=== PATIENT | female | born 2000 | race Caucasian/White ===

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

== ENCOUNTER 2023-11-06 11:21 | Outpatient (CLI) | payer OTHER, SELFPAY ==
[2023-11-06 12:05] LABS: Basophils Absolute Auto 0.04 K/mm3 (0.00-0.10); Basophils Percent Auto 0.8 % (0.0-1.0); Eosinophils Absolute Auto 0.09 K/mm3 (0.02-0.50); Eosinophils Percent Auto 1.7 % (1.0-6.0); Hematocrit 41.4 % (35.0-49.0); Hemoglobin 14.3 g/dL (12.0-15.0); Immature Granulocyte Absolute 0.01 K/mm3 (0.00-0.00); Immature Granulocyte Percent A 0.2 % (0.0-0.0); Lymphocytes Absolute Auto 1.79 K/mm3 (1.10-4.50); Lymphocytes Percent Auto 34.4 % (18.0-42.0); Mean Corpuscular HGB Conc 34.5 g/dL (32-36); Mean Corpuscular Hemoglobin 30.5 pg (27.0-31.0); Mean Corpuscular Volume 88.3 fL (78.0-102.0); Mean Platelet Volume 10.6 fl (9.2-11.8); Monocytes Absolute Auto 0.32 K/mm3 (0.10-0.90); Monocytes Percent Auto 6.1 % (2.0-11.0); Neutrophils Absolute Auto 2.96 K/mm3 (1.70-7.20); Neutrophils Percent Auto 56.8 % (50.0-70.0); Platelet Count Result 217 K/mm3 (150-420); Red Blood Count 4.69 M/mm3 (4.20-5.40); Red Cell Distribution Width 12.3 % (11.6-14.4); White Blood Count 5.2 K/mm3 (4.8-10.8)
[2023-11-06 12:08] LABS: Appearance Urine Clear (Clear); Bilirubin Urine Negative (Negative); Blood Urine Negative (Negative); Color Urine Light Yellow (Yellow); Glucose Urine UA Negative (Negative); Ketones Urine Negative (Negative); Leukocyte Esterase Ur Trace (Negative); Nitrate Urine Negative (Negative); Protein Urine Negative (Negative); Specific Grav Ur 1.025 (1.010-1.020)
[2023-11-06 12:23] LABS: Add Urine Microscopic? YES; Bacteria Urine 2+ /hpf; RBC Urine None seen /hpf (0-2); Squamous Epithelial Cell Urine Moderate /hpf (Few); WBC Urine 0-3 /hpf (0-3)
[2023-11-06 12:45] LABS: Alanine Aminotransferase 20 U/L (14-59); Albumin Level 4.3 g/dL (3.4-5.0); Alkaline Phosphatase 73 U/L (46-116); Anion Gap 9 mmol/L (4-12); Aspartate Amino Transferase 15 U/L (15-37); Bilirubin,Total 0.9 mg/dL (0.00-1.00); Blood Urea Nitrogen 9 mg/dL (7-18); Calcium 8.9 mg/dL (8.5-10.1); Carbon Dioxide 28 mmol/L (21-32); Chloride 105 mmol/L (98-108); Estimated Glomerular Filt Rate > 60; Free T4 Free Thyroxine 0.93 ng/dL (0.76-1.46); Glucose 85 mg/dL (70-99); Osmolality Calculated 291 mOsm/kg (285-295); Potassium 4.4 mmol/L (3.5-5.1); Sodium 142 mmol/L (136-145); Thyroid Stimulating Hormone 2.51 uIU/mL (0.36-3.74); Total Protein 7.2 g/dL (6.4-8.2)
[2023-11-06 12:49] LABS: Beta HCG Quantitative < 1.00 mIU/mL (0-6)
[2023-11-06 15:39] LABS: Partial Thromboplastin Time 26.8 Sec (23.9-30.70)
== END 2023-11-06 11:22 | disposition home or self-care (01) ==
LOC: CHSLAB 11:23
PROVIDERS: PCP Internal Medicine; Visit Provider Internal Medicine
DX: K59.00 Constipation, unspecified (principal); K62.5 Hemorrhage of anus and rectum; T14.8XXA Other injury of unspecified body region, initial encounter; Z30.9 Encounter for contraceptive management, unspecified
CPT/HCPCS: 36415; 80053; 81001; 83735; 84439; 84443; 84481; 84702; 85025; 85610; 85730

== ENCOUNTER 2023-11-20 10:30 | Outpatient (CLI) | payer OTHER, SELFPAY ==
--- NOTE | ~2023-11-20 | US_ITS ---
US breast RT limited INDICATION: Right breast pain TECHNIQUE: Dedicated Limited right breast ultrasound COMPARISON: No prior studies for comparison. FINDINGS: The right breast is composed of normal heterogeneous echotexture without focal solid or cys tic mass. IMPRESSION: 1: Normal limited right breast ultrasound. BI-RADS CATEGORY 1 - NEGATIVE Reviewed, dictated and finalized at location B.
== END 2023-11-20 10:31 | disposition home or self-care (01) ==
LOC: CHSIMG 10:32
PROVIDERS: PCP Internal Medicine; Visit Provider Nurse Practitioner Family
DX: N64.4 Mastodynia (principal)
CPT/HCPCS: 76642

== ENCOUNTER 2023-12-16 09:22 | Outpatient (CLI) | payer OTHER, SELFPAY ==
[2023-12-18 14:41] LABS: Reference Lab Test Name THYROID T7 PANEL
== END 2023-12-16 09:23 | disposition home or self-care (01) ==
LOC: CHSLAB 09:28
PROVIDERS: PCP Internal Medicine
DX: K59.00 Constipation, unspecified (principal)
CPT/HCPCS: 36415; 84436; 84479

== ENCOUNTER 2023-12-23 14:46 | Outpatient (CLI) | payer OTHER, SELFPAY ==
[2023-12-25 11:58] LABS: NIL 0.03 IU/mL; Quantiferon TB Plus, 1T NEGATIVE (NEGATIVE)
== END 2023-12-23 14:47 | disposition home or self-care (01) ==
LOC: CHSLAB 14:47
PROVIDERS: PCP Internal Medicine; Visit Provider Internal Medicine
DX: Z02.0 Encounter for examination for admission to educational institution (principal)
CPT/HCPCS: 36415; 86480

== ENCOUNTER 2024-08-03 08:00 | Outpatient (CLI) | payer OTHER, SELFPAY ==
--- NOTE | ~2024-08-03 | US_ITS ---
EXAMINATION: US OB <= 14 weeks fetus DATE: 08/03/2024 9:25 PRIEST INDICATION: Amenorrhea with positive test COMPARISON: 03/10/2024 TECHNIQUE: Real-time transabdominal obstetric ultrasound. FINDINGS: 1 para 0 Estimated date of delivery by last menstrual period is 02/12/2025 The uterus measures 13.3 x 6.8 x 9.6 cm. A gestational sac is identified within the uterus. A pole is identified, with a crown-rump length that measures 6.9 cm, corresponding to an approx imate gestational age of 13 weeks and 1 day. cardiac activity is identified at a rate of 159 bpm. The right ovary measures 4.1 x 2.6 x 3.4 cm. Single, anechoic avascular focus within the right ovary measuring 16 x 16 x 19 mm, likely a simple cy st for which no further follow-up is needed. The left ovary measures 3.0 x 2.5 x 1.8 cm. Estimated date of delivery by ultrasound is 02/07/2025 IMPRESSION: Single intrauterine gestation with an approximate gestational age of 13 weeks and 1 day, with c ardiac activity identified. Reviewed, dictated and finalized at location A. ST IMPRESSION: Single intrauterine gestation with an approximate gestational age of 13 weeks a nd 1 day, with cardiac activity identified.
--- OUTSIDE RECORDS SUMMARY | 2024-08-03 08:13 | XMS_ITS | Clinical Summary ---
Author Organization [facility] [email or web address] Address [address] [place] [address] Care Team Providers Care Grab Hooker Name Role Phone Unavailable Primary Care Provider Unavailabl e Source Comments [facility] [email or web address],non-owned Affiliates and Associated Physician Practices is amultiple site organization consisting of ambulatory clinics and hospital sitesin [place], [place], [place] and [place]. This disclosure is being madepursuant to the Care Everywhere program and may not contain all information available regarding this patient. Last updated [email or web address] Allergies No known active allergies Medications * Be aware that medications may not be up to date on this document. Alwaysverify current medications with the patient. Medication Sig Dispensed Refills Start Date End Date Status levonorgestrel-ethiny l estradiol (CAMRESE) 0.15-0.03 &0.01 MG tablet Take 1 tablet by mouth once daily 91 tablet 2 02/10/2018 Active SUMAtriptan (IMITREX) 25 MG tablet Take 1 tab by mouth once at first sign of migraine. May repeat one time after 2 hours if needed. 9 tablet 08/03/2018 Active Active Problems Problem Noted Date Diagnosed Date Menorrhagia with regular cycle 02/10/2018 BMI (body mass index), pedia tric, 85% to less than 95% for age 0611/17/2012 Idiopathic urticaria Overview (03/20/2009): 05/11/07 Resolved Problems Problem Noted Date Diagnosed Date Resolved Date Routine or child health check 11/17/2012 Overview (03/20/2009): 07/29/08 Pneumonia due to organism Overview (03/20/2009): 05/11/07 Influenza with respiratory m anifestation other than pneumonia 11/17/2012 Overview (03/09/2015): 08/02/08 Abdominal pain 11/17/2012 Overview (03/09/2015): 02/14/09 Screening for condition 11/07 Overview (03/09/2015): Pediatric Screening Measures Metabolic Screen Date: N/A Result: passed Hearing Screen Date: N/A Result: passed AR (allergic rhinitis) 02/01 Overview (03/20/2009): 07/31/08 Tick bite 11/17/2012 Overview (03/20/2009): 12/20/05 Viral syndrome 11/17/2012 Overview (03/20/2009): 04/04/06 Cellulitis 11/17/2012 Overview (03/20/2009): 08/26/06 Immunizations Name Administration Dates Next Due DTaP VACCINE IM (6wk-6yrs) 08/18/2006,,02/15/2002,12/14,2001 HEP A PEDS 2 DOSE 12/31/2010,08/18/2006 HEP B VACCINE, PED/ADOL 05/17/2002,2001, HIB BOOSTER 02/28/2003, 2,2001,10/15 Human Papilloma Virus Alden valent Vaccine 06/17/2013,01/21/2013,11/20/2012 MENINGOCOCCAL CONJUGATE (MCV4P) 02/10/2018,11/20 MMR 08/18/2006,08/16/2002 PNEUMOCOCCAL CONJ, PEDS 08/16/2002,02/15,2001,10/15 POLIO IPV 08/18/2006, 3,2001,10/15 PPD 08/18/2006,08/16/2002 TDAP (7yrs+) 11/17/2012 VARICELLA 08/18/2006,11/19/2002 Social History Tobacco Use Types Packs/Day Years Used Date Smoking Tobacco: Never Smokeless Tobacco: Never Comments:parents Alcohol Use Standard Drinks/Week Comments Not Asked 0 (1 standard drink = 0.6 oz pur e alcohol) Sex and Gender Information Value Date Recorded Sex Assigned at Not on file Gender Identity Not on file Sexual Orientation Not on file Last Filed Vital Signs Vital Sign Reading Time Taken Comments Blood Pressure 112/71 08/03/2018 2:54 PM RAILROAD MAINTENANCE CLERK Pulse 66 08/03/2018 2:54 PM RAILROAD MAINTENANCE CLERK Temperature 36.2 C (97.2 F) 08/03/2018 2:54 PM RAILROAD MAINTENANCE CLERK Respiratory Rate 24 12/31/2010 3:32 PM CDT Oxygen Saturation - - Inhaled Oxygen Concentration - - Weight 64.9 kg (143 lb) 08/03/2018 2:54 PM RAILROAD MAINTENANCE CLERK Height 161.5 cm (5' 3.58 ) 02/10/2018 11:08 AM C DT Body Mass Index - - Plan of Treatment Health Maintenance Due Date Last Done Comments PAP SMEAR 2001 HIV SCREENING 2016 CHLAMYDIA/GONORRHEA SCREENING 2017 MENINGOCOCCAL (Group B) VACC INE (1 of 2 - Standard) 2017 HEPATITIS C SCREENING 08/09/2019 DTAP/TDAP/TD VACCINES (7 - T d or Tdap) 11/17/2022 11/17/2012, 08/18/2006, 02/28/2003, Additional history exists COVID-19 VACCINE (1 - 2023-2 5 season) 2024 INFLUENZA VACCINE (#1) 2024 DEPRESSION SCREENING 06/09/2024 ZOSTER VACCINE (1 of 2) 08/14/2051 HEPATITIS B VACCINE Completed 05/17/2002, 2001, 2001 PNEUMOCOCCAL VACCINE Completed 08/16/2002, 02/15/2002, 2001, Additional history exists HIB VACCINE Completed 02/28/2003, 02/2002, 2001, Additional history exists HPV VACCINE Completed 06/17/2013, 01/07, 11/20/2012 MENINGOCOCCAL VACCINE Completed 02/10/2018, 013 Goals Goal Patient Goal Type Associated Problems Recent Progress Patient-Stated? Author Exercise 3X per week (30 min per time) Exercise On track( 017 1:43 PM CDT) No Kathy Velez MD Note: Get Moving: It is recommended that children and teens get physical activity for at least 1 hour per day on most (or better yet, all) days of the week. That may sound like a lot, especially if your child is not getting any physical activity now. But physical activity means more than exercise. It can mean playing games in the backyard, or washing the car. It can mean picking up leaves, or walking the dog. Add the healthy habit of physical activity to your family s schedule. When children take off weight through dieting alone, 80 percent of the loss is from fatty tissue and 20 percent is from muscle. Adding weight-resistance training to an exercise routine preserves the muscle tissue. Virtually every ounce dropped comes from fat. Once an adolescent meets her goal, regular exercise is essential for maintaining the desired weight. Where can I go for more information? [employer] ( ) www.aap.org HealthyChildren.org www.healthychildren.org U.S. Department of Health and Human Services www.hhs.gov Website and free downloadable carline for smartphones: http://www.AngelPrime/ Use safety retraint in car Lifestyle On track( 018 11:08 AM CDT) No Klaudia Márquez, VIN KARIN OG Personal/Family [address] [place] [address]
--- OUTSIDE RECORDS SUMMARY | 2024-08-03 08:13 | XMS_ITS | Referral Summary ---
Author Organization [facility] [place] [employer] Address [address] [place] [address] Care Team Providers Care Choir Singer Name Role Phone Unavailable Primary Care Provider Unavailabl e Source Comments [facility] [place] [employer],non-owned Affiliates and Associated Physician Practices is amultiple site organization consisting of ambulatory clinics and hospital sitesin [place], [place], [place] and [place]. This disclosure is being madepursuant to the Care Everywhere program and may not contain all information available regarding this patient. Last updated 18.[facility] [place] [employer] Allergies No known active allergies Medications * [...] Noted Date Diagnosed Date Resolved Date Routine infant or child health check 11/17/2012 Overview (03/20/2009): [...] Comments Blood Pressure 112/71 08/03/2018 2:54 PM BUSINESS SYSTEMS ADMINISTRATOR Pulse 66 08/03/2018 2:54 PM BUSINESS SYSTEMS ADMINISTRATOR Temperature 36.2 C (97.2 F) 08/03/2018 2:54 PM BUSINESS SYSTEMS ADMINISTRATOR Respiratory Rate 24 12/31/2010 3:32 PM CDT Oxygen Saturation - - Inhaled Oxygen Concentration - - Weight 64.9 kg (143 lb) 08/03/2018 2:54 PM BUSINESS SYSTEMS ADMINISTRATOR Height 161.5 cm (5' 3.58 ) 02/10/2018 11:08 AM C DT Body Mass Index - - Plan of Treatment Not on file Goals Goal Patient Goal Type Associated Problems [...] Where can I go for more information? [employer] ( ) www.aap.org HealthyChildren.org www.healthychildren.org U.S. Department of Health and Human Services www.hhs.gov Website and free downloadable carline for smartphones: http://www.RunnerPlace/ Use safety retraint in car Lifestyle On track( 018 11:08 AM CDT) No Klaudia Márquez RN KARIN OG Personal/Family [address] [place] [address]
--- OUTSIDE RECORDS SUMMARY | 2024-08-03 08:13 | XMS_ITS | Patient Health Summary ---
Author Organization [facility] [employer] Address [address] [place] [address] Care Team Providers Care Fountain Pen Nibs Inspector Name Role Phone Unavailable Primary Care Provider Unavailabl e Note from [facility],non-owned Affiliates and Associated Physician Practices is amultiple site organization consisting of ambulatory clinics and hospital sitesin [place], [place], [place] and [place]. This disclosure is being madepursuant to the Care Everywhere program and may not contain all information available regarding this patient. Last updated 18.[facility] [employer] Allergies No known active allergies Medications * Be aware that medications may not be up to date on this document. Alwaysverify current medications with the patient. * levonorgestrel-ethinyl estradiol (CAMRESE) 0.15-0.03 &0.01 MG tablet(Started 02/10/2018) Take 1 tablet by mouth once daily 2 refills remaining * SUMAtriptan (IMITREX) 25 MG tablet(Started 08/03/2018) Take 1 tab by mouth once at first sign of migraine. May repeat one time after 2 hours if needed. Active Problems Problem Noted Date Diagnosed Date Menorrhagia with regular cycle 02/10/2018 BMI (body mass index), pedia tric, 85% to less than 95% for age 0611/17/2012 Idiopathic urticaria Resolved Problems Problem Noted Date Diagnosed Date Resolved Date Routine or child health check 11/17/2012 Pneumonia due to organism Influenza with respiratory m anifestation other than pneumonia 11/17/2012 Abdominal pain 11/17/2012 Screening for condition 11/07 AR (allergic rhinitis) 02/01 Tick bite 11/17/2012 Viral syndrome 11/17/2012 Cellulitis 11/17/2012 Immunizations * DTaP VACCINE IM (6wk-6yrs)(Given 08/18/2006, 02/28/2003, 02/15/2002, 2001, 2001) * HEP A PEDS 2 DOSE(Given 12/31/2010, 08/18/2006) * HEP B VACCINE, PED/ADOL(Given 05/17/2002, 2001, 2001) * HIB BOOSTER(Given 02/28/2003, 02/15/2002, 2001, 2001) * Human Papilloma Virus Quadrivalent Vaccine(Given 06/17/2013, 01/21/2013, 11/20/2012) * MENINGOCOCCAL CONJUGATE (MCV4P)(Given 02/10/2018, 11/20/2012) * MMR(Given 08/18/2006, 08/16/2002) * PNEUMOCOCCAL CONJ, PEDS(Given 08/16/2002, 02/15/2002, 2001, 2001) * POLIO IPV(Given 08/18/2006, 11/19/2002, 2001, 2001) * PPD(Given 08/18/2006, 08/16/2002) * TDAP (7yrs+)(Given 11/17/2012) * VARICELLA(Given 08/18/2006, 11/19/2002) Social History Tobacco Use Types Packs/Day Years [...] Comments Blood Pressure 112/71 08/03/2018 2:54 PM HEAD HOST/HOSTESS Pulse 66 08/03/2018 2:54 PM HEAD HOST/HOSTESS Temperature 36.2 C (97.2 F) 08/03/2018 2:54 PM HEAD HOST/HOSTESS Respiratory Rate 24 12/31/2010 3:32 PM CDT Oxygen Saturation - - Inhaled Oxygen Concentration - - Weight 64.9 kg (143 lb) 08/03/2018 2:54 PM HEAD HOST/HOSTESS Height 161.5 cm (5' 3.58 ) 02/10/2018 11:08 AM C DT Body Mass Index - - Procedures * IMAGING/RADIOLOGY/XRAY RESULTS ORDER(Performed 05/21/2018) * LIPID PROFILE+GLUCOSE - POINT OF CARE (AMB)(Performed 02/10/2018) Performed for Encounter for routine child health examination without abnormal findings * CULTURE RESPIRATORY UPPER(Performed 02/06/2018) * CULTURE AEROBIC+GRAM STAIN(Performed 06/22/2013) Performed for Boil of leg except foot * STREP A SCREEN - POINT OF CARE (AMB)(Performed 04/08/2011) Performed for Acute pharyngitis * CULTURE STREP GROUP A(Performed 04/08/2011) Performed for Acute pharyngitis * US ABDOMEN LIMITED(Performed 02/19/2010) Performed for Hematuria * CALCIUM/CREAT RATIO URINE RANDOM PANEL(Performed 02/13/2010) Performed for Hematuria * COMPREHENSIVE METABOLIC PANEL(Performed 02/13/2010) Performed for Hematuria * CULTURE URINE(Performed 02/08/2010) Performed for Hematuria, Vulvovaginal Thrush * URINE MICROSCOPIC ONLY(Performed 02/08/2010) Performed for Hematuria * URINALYSIS REFLEX TO MICROSCOPIC NO CULTURE(Performed 02/08/2010) Performed for Hematuria * URINALYSIS - POINT OF CARE(Performed 02/08/2010) Performed for Hematuria * URINE MICROSCOPIC ONLY(Performed 01/23/2010) Performed for Special Screening for Other Specified Conditions * URINALYSIS REFLEX TO MICROSCOPIC NO CULTURE(Performed 01/23/2010) Performed for Special Screening for Other Specified Conditions Results * IMAGING RADIOLOGY XRAY RESULTS ORDER (05/21/2018) Anatomical Region Laterality Modality Other Scanned Document IMAGING * LIPID PROFILE+GLUCOSE - POINT OF CARE (AMB) (02/10/2018) QC Verified Yes Yes Cholesterol POCT 164 200 mg/dl HDL POCT 39 mg/dL Triglycerides POCT 70 130 mg/dL LDL 111 130 mg/dl Non HDL Cholesterol POCT 125 145 mg/dL Total Cholesterol/HDL Ratio POCT 4.2 6.0 Glucose 90 70 - 126 mg/dL Blood BLOOD SPECIMEN / Unknown 02/10/2018 Kathy Velez MD LAB - POINT OF CARE ORDERABLES * CULTURE RESPIRATORY UPPER (02/06/2018 1:28 PM CDT) Upper Respiratory Culture Final report [facility] INSURANCE BILL Result 1 [facility] INSURANCE BILL Comment:Routine respiratory gokul 02/06/2018 1:28 PM CDT 02/06/2018 Narrative Resulting Agency Comment [facility] [address] [phone] Kristofer Chen DO LAB - MICROBIOL OGY ORDERABLES [facility] INSURANCE BILL [address] [place] [address] * CULTURE ROUTINE (06/22/2013 5:12 PM HEAD HOST/HOSTESS) Aerobic Bacterial Culture Final report [facility] ACCOUNT BILL Result 1 [facility] ACCOUNT BILL Comment:No growth in 36 - 48 hours. ABSCESS OF SKIN AND/OR SUBCUTANEOUS TISSUE / Unknown 06/22/2013 5:12 PM HEAD HOST/HOSTESS 06/22/2013 9:35 PM HEAD HOST/HOSTESS Narrative Resulting Agency [facility] [address] [phone] Kathy Velez MD LAB - MICROBIOLOGY O RDERABLES [facility] ACCOUNT BILL * STREP A SCREEN - POINT OF CARE (AMB) (04/08/2011 1:41 PM CDT) Strep A Rapid POCT negative NEGATIVE - POSITIVE Strep A Internal Control NEGATIVE - POSITIVE ENTIRE THROAT (SURFACE REGION OF NECK) / Unknown Tiffaine Thompson MD LAB - POINT OF CARE ORDERABLES * CULTURE STREP GROUP A (04/08/2011 1:38 PM CDT) Beta-Strep Culture, Group A Only Negative [facility] ACCOUNT BILL Miscellaneous samples (specimen) ENTIRE THROAT (SURFACE REGION OF NECK) / Unknown 04/08/2011 1:38 PM CDT 04/08/2011 9:28 PM CDT Narrative Resulting Agency Comment [facility] [phone] Tiffanie Thompson MD LAB - MICROBIOLOGY O RDERABLES Performing Organization Address [facility] Co de Phone Number [facility] ACCOUNT BILL * RENAL ULTRASOUND BILATERAL (02/19/2010) Anatomical Region Laterality Modality Abdomen Other Tiffanie Thompson MD US ORDERABLES * CALCIUM/CREAT RATIO URINE RANDOM PANEL (02/13/2010 3:48 PM CDT) Calcium Urine 5.2 Not Estab. mg/dL [facility] ACCOUNT BILL Creatinine 24 Hour Urine 100.5 16.0 - 327.0 mg/dL [facility] ACCOUNT BILL Calcium/Creatin ine Ratio Urine 52 0 - 260 mg/g creat [facility] ACCOUNT BILL URINE SPECIMEN OBTAINED BY CLEAN CATCH PROCEDURE / Unknown 02/13/2010 3:48 PM CDT 02/13/2010 9:33 PM CDT Narrative Resulting Agency Comment [facility] [phone] Tiffanie Thompson MD LAB - URINE CHEMISTR Y ORDERABLES Performing Organization Address [facility] de Phone Number [facility] ACCOUNT BILL * COMPREHENSIVE METABOLIC PANEL (02/13/2010 3:45 PM CDT) Glucose 81 65 - 99 mg/dL [facility] ACCOUNT BILL BUN 13 5 - 26 mg/dL [facility] ACCOUNT BILL Creatinine 0.52 0.37 - 0.62 mg/dL [facility] ACCOUNT BILL BUN/Creatinine Ratio 25 8 - 27 [facility] ACCOUNT BILL Sodium 141 135 - 145 mmol/L [facility] ACCOUNT BILL Potassium 4.3 3.5 - 5.2 mmol/L [facility] ACCOUNT BILL Chloride 101 97 - 108 mmol/L [facility] ACCOUNT BILL CO2 25 20 - 32 mmol/L [facility] ACCOUNT BILL Calcium 9.5 9.1 - 10.5 mg/dL [facility] ACCOUNT BILL Protein Total 6.8 6.0 - 8.5 g/dL [facility] ACCOUNT BILL Albumin 4.8 3.5 - 5.5 g/dL [facility] ACCOUNT BILL Globulin Total 2.0 1.5 - 4.5 g/dL [facility] ACCOUNT BILL Albumin/Globulin Ratio 2.4 1.1 - 2.5 [facility] ACCOUNT BILL Bilirubin Total 0.3 0.0 - 1.2 mg/dL [facility] ACCOUNT BILL Alkaline Phosphatase 263 100 - 400 IU/L [facility] ACCOUNT BILL AST 28 0 - 60 IU/L [facility] ACCOUNT BILL ALT 16 0 - 40 IU/L [facility] ACCOUNT BILL BLOOD SPECIMEN / Unknown 02/13/2010 3:45 PM CDT 02/13/2010 9:28 PM CDT Narrative Resulting Agency Comment [facility] [address] [phone] Tiffanie Thompson MD LAB - CHEMISTRY ORDSunshine [facility] ACCOUNT BILL * CULTURE URINE (02/08/2010 4:52 PM CDT) Urine Culture Routine Final report [facility] ACCOUNT BILL Result 1 No growth [facility] ACCOUNT BILL URINE / Unknown 02/08/2010 4 :52 PM CDT 02/08/2010 9:53 PM CDT Narrative Resulting Agency Comment [facility] [address] [phone] Tiffanie Thompson MD LAB - MICROBIOLOGY O RDERABLES [facility] ACCOUNT BILL * (ABNORMAL) URINALYSIS ROUTINE AUTO (02/08/2010 4:38 PM CDT) Only the most recent of2 resultswithin the time period is included. Specific Frostproof UA 1.027 1.005 - 1.030 [facility] ACCOUNT BILL pH UA 7.0 5.0 - 7.5 [facility] ACCOUNT BILL Color UA Yellow Yellow [facility] ACCOUNT BILL Appearance Clear Clear [facility] ACCOUNT BILL Leukocyte UA 1+(A) Negative [facility] ACCOUNT BILL Protein UA Trace Negative/Tra ce [facility] ACCOUNT BILL Glucose UA Negative Negative [facility] ACCOUNT BILL Ketone UA Negative Negative [facility] ACCOUNT BILL Occult Blood Urine 1+(A) Negative [facility] ACCOUNT BILL Bilirubin UA Negative Negative [facility] ACCOUNT BILL Urobilinogen 0.2 0.0 - 1.9 mg/dL [facility] ACCOUNT BILL Nitrite UA Negative Negative [facility] ACCOUNT BILL Microscopic Examination Urine See below: [facility] ACCOUNT BILL Microscopic Examination Urine CANCELED [facility] ACCOUNT BILL Comment:Result canceled by t he ancillary URINE SPECIMEN COLLECTION, CLEAN CATCH / Unknown 02/08/2010 4:38 PM CDT 02/08/2010 9:53 PM CDT Narrative Resulting Agency Comment [facility] [address] [phone] Tiffanie Thompson MD LAB - URINALYSIS ORD ERABLES [facility] ACCOUNT BILL * (ABNORMAL) URINALYSIS MICROSCOPIC ONLY (02/08/2010 4:38 PM CDT) Only the most recent of2 resultswithin the time period is included. WBC UA 11-30(A) 0 - 5 /hpf [facility] ACCOUNT BILL RBC UA 11-30(A) 0 - 3 /hpf [facility] ACCOUNT BILL Epithelial Cells (non renal) 0-10 0 - 10 /hpf [facility] ACCOUNT BILL Epithelial Cells (renal) CANCELED [facility] ACCOUNT BILL Comment:Result canceled by t he ancillary Casts ua CANCELED [facility] ACCOUNT BILL Comment:Result canceled by t he ancillary Casts UA CANCELED [facility] ACCOUNT BILL Comment:Result canceled by t he ancillary Crystals UA Present(A) N/A [facility] ACCOUNT BILL Crystals UA Amorphous Sediment N/A [facility] ACCOUNT BILL Mucus UA Present Not Estab. [facility] ACCOUNT BILL Bacteria UA Few None seen/Few [facility] ACCOUNT BILL Yeast UA CANCELED [facility] ACCOUNT BILL Comment:Result canceled by t he ancillary Trichomonas UA CANCELED [facility] ACCOUNT BILL Comment:Result canceled by t he ancillary Comment Urine CANCELED [facility] ACCOUNT BILL Comment:Result canceled by t he ancillary URINE SPECIMEN COLLECTION, CLEAN CATCH / Unknown 02/08/2010 4:38 PM CDT 02/08/2010 9:53 PM CDT Narrative Resulting Agency Comment [facility] [address] [phone] Tiffanie Thompson MD LAB - URINALYSIS ORD ERABLES [facility] ACCOUNT BILL * (ABNORMAL) URINALYSIS - POINT OF CARE (02/08/2010 4:31 PM CDT) Clarity UA POCT clear Color UA POCT dark vaibhav Leukocyte UA 2+ Negative Nitrite UA POCT neg Negative Urobilinogen UA POCT neg 0.1 - 1.0 EU/dL Protein UA POCT neg Negative pH UA 6 5.0 - 8.0 pH units Blood UA 250 Negative Specific Frostproof UA POCT 1.015 1.002 - 1.030 Ketone UA neg Negative Bilirubin UA POCT neg Negative Glucose UA neg Negative Urine specimen (specimen) URINE / Unknown 02/08/2010 4:31 PM CDT Tiffanie Thompson MD LAB - POINT OF CARE ORDERABLES
--- OUTSIDE RECORDS SUMMARY | 2024-08-03 08:14 | XMS_ITS ---
Author Organization Unknown Address [address] [place] [phone] Phone Care Team Providers Care French Professor Name Role Phone RAMÍREZ Parrish Attending Unavailable BRET OLIVIA CRNA Unavailable NO PCP Primary Unavailable Immunization Immunization Date Status Additional Notes Code Code System MMR 08/16/2002 Completed 03 CVX MMR 08/18/2006 Completed 03 CVX MMR 08/26/2018 Completed 03 CVX Hep B, adolescent or pediatric 2001 Completed 08 CVX Hep B, adolescent or pediatric 2001 Completed 08 CVX Hep B, adolescent or pediatric 05/17/2002 Completed 08 CVX IPV 11/19/2002 Completed 10 CVX IPV 08/18/2006 Completed 10 CVX DTaP 08/18/2006 Completed 20 CVX varicella 11/19/2002 Completed 21 CVX varicella 08/18/2006 Completed 21 CVX DTaP-Hib 02/15/2002 Completed 50 CVX DTaP-Hib 02/28/2003 Completed 50 CVX HPV, quadrivalent 11/20/2012 Completed 62 C VX HPV, quadrivalent 01/21/2013 Completed 62 C VX HPV, quadrivalent 06/17/2013 Completed 62 C VX Hep A, ped/adol, 2 dose 08/18/2006 Completed 83 CVX Hep A, ped/adol, 2 dose 12/31/2010 Completed 83 CVX pneumococcal conjugate PCV 7 2001 Completed 100 CVX pneumococcal conjugate PCV 7 2001 Completed 100 CVX pneumococcal conjugate PCV 7 02/15/2002 Completed 100 CVX meningococcal MCV4P 11/20/2012 Completed 114 CVX meningococcal MCV4P 02/10/2018 Completed 114 CVX Tdap 11/17/2012 Completed 115 CVX RIzE-Zaz-ZPO 2001 Completed 120 CVX BDpK-Wdr-MMF 2001 Completed 120 CVX Pneumococcal Conjugate, unspecified formulation 08/16/2002 Completed 152 CVX Results TEST URINE - Colle ct Date/Time: 12/31/2023 10:34 [facility] ID: [id number] [address] [place], [place], [id number] LOINC: Test Value Unit Reference Range Code Code System Flag URINE PREG NEGATIVE Social History Type Status Start Date End Date Code Code Syst em Smoking History Never smoker (Never Smoked) 382113655 SNOMED CT Sex Female Vital Signs Vital Sign Value Unit Ce[place] Value Ceiba Unit Date/Time Recent/Initial? Code Code System Body Mass Index 23.69 kg/m2 12/15/2023 13:39 Initial 54377 -5 LOINC Systolic Blood Pressure 111 mm[Hg] 12/31/2023 10:38 Initial 8480- 6 LOINC Diastolic Blood Pressure 59 mm[Hg] 12/31/2023 10:38 Initial 8462- 4 LOINC Body Surface Area 1.68 m2 12/15/2023 13:39 Initial 3140- 1 LOINC Height 162.560 0 cm 64.00 in 12/15/2023 13:39 Initial 8302- 2 LOINC O2 Saturation 99 % 2023 10:38 Initial 89129 -5 LOINC Pulse 69.0 /min 12/31/2023 10:38 Initial 8867- 4 LOINC Respiration 16 /min 12/31/19 10:38 Initial 9279- 1 LOINC Temperature 36.9 Angela 98.4 F 12/31/19 10:38 Initial 8310- 5 LOINC Weight 62.60 kg 138.00 lbs 12/15/2023 13:39 Initial 49646 -7 LOINC Medications Medication Start Date End Date Route Frequency Dose Code Code System Medication Instructions Home Meds Daysee 30MCG-0.15MG;0.01MG Oral Tablet 12/31/2023 Unknown ORAL ONCE A DAY 1 unit(s) 6867695 RxNorm TAKE 1 EACH ORAL ONCE A DAY Nystatin/Triamcinolo ne Acetonide 666232N-9ZY/1GM Topical application Ointment 12/31/2023 Unknown TOPICAL APPLICATI ON TWICE A DAY 1 unit(s) 2840141 RxNorm 1 EACH TOPICAL APPLICAT ION TWICE A DAY Triamcinolone Acetonide 0.5% Topical application Cream 12/31/2023 Unknown TOPICAL APPLICATI ON TWICE A DAY 1 unit(s) 4550976 RxNorm 1 EACH TOPICAL APPLICAT ION TWICE A DAY MiraLAX 17GM/1Dose Oral Powder for Solution 12/31/2023 Unknown BY MOUTH 1 336324 RxNorm TAKE 1 BY MOUTH FOR CONSTIPA TION Hospital Discharge Instructions Should you have any questions prior to discharge, please contact a member of your healthcare team. If you have left the hospital and have any questions, please contact your primary care physician. Reason For Referral No Data Found Procedures Procedure Name Date Status Code Code Syste m Colonoscopy, flexible; diagn ostic, including collection of specimen(s) by 12/31/2023 completed 85278 CPT Anesthesia for lower intesti nal endoscopic procedures, endoscope introduce 12/31/2023 completed 44826 CPT Allergies and Adverse Reactions Allergy Substance Reaction Severity Start Date Concern Status Co de Code System No Known Allergies Active 285221941 SNO MED-CT Plan of Treatment Colonoscopy 12/31/2023 Encounters Encounter Diagnosis Start Date Code Code Sys tem Constipation, unspecified 12/31/2023 SN OMED-CT Personal Care Team Section Performer Name Performer Role Active Date Inactive Jhony monreal
== END 2024-08-03 08:01 | disposition home or self-care (01) ==
LOC: ANHIMG 08:01
PROVIDERS: PCP Internal Medicine; Visit Provider Nurse Practitioner Obstetrics & Gynecology
DX: N91.2 Amenorrhea, unspecified (principal)
CPT/HCPCS: 76801

== ENCOUNTER 2024-08-12 12:26 | Outpatient (CLI) | payer OTHER, SELFPAY ==
[2024-08-12 13:20] LABS: Add Urine Microscopic? NO; Appearance Urine Clear (Clear); Bilirubin Urine Negative (Negative); Blood Urine Negative (Negative); Color Urine Yellow (Yellow); Glucose Urine UA Negative (Negative); Ketones Urine Negative (Negative); Leukocyte Esterase Ur Negative LEU/UL (Negative); Nitrate Urine Negative (Negative); Protein Urine Negative (Negative); Specific Grav Ur 1.025 (1.001-1.035); Urobilinogen Urine 0.2 mg/dL (<2.0)
[2024-08-12 13:22] LABS: Hematocrit 33.9 % (37.0-47.0); Immature Platelet Fraction Pct 4.8 % (0.9-11.2); Mean Corpuscular HGB Conc 35.4 g/dl (32-36); Mean Corpuscular Hemoglobin 31.3 pg (26-34); Mean Corpuscular Volume 88.3 fl (80-100); Mean Platelet Volume 10.9 fl (7.4-10.4); Platelet Count Result 128 k/mm3 (150-375); Red Blood Count 3.84 M/mm3 (4.2-5.4); Red Cell Distribution Width 12.7 % (11.5-14.5); White Blood Count 7.1 K/mm3 (4.5-10.0)
--- OUTSIDE RECORDS SUMMARY | 2024-08-12 13:40 | XMS_ITS | Referral Summary ---
Author Organization [facility] Address [address] [place] [address] Care Team Providers Care Wheel Cleaner Name Role Phone Unavailable Primary Care Provider Unavailabl e Source Comments [facility],non-owned Affiliates and Associated Physician Practices is amultiple site organization consisting of ambulatory clinics and hospital sitesin [place], [place], [place] and [place]. This disclosure is being madepursuant to the Care Everywhere program and may not contain all information available regarding this patient. Last updated 18.[employer] [facility] Allergies No known active allergies Medications * [...] Comments Blood Pressure 112/71 08/03/2018 2:54 PM MACHINE BRUSH MAKER Pulse 66 08/03/2018 2:54 PM MACHINE BRUSH MAKER Temperature 36.2 C (97.2 F) 08/03/2018 2:54 PM MACHINE BRUSH MAKER Respiratory Rate 24 12/31/2010 3:32 PM CDT Oxygen Saturation - - Inhaled Oxygen Concentration - - Weight 64.9 kg (143 lb) 08/03/2018 2:54 PM MACHINE BRUSH MAKER Height 161.5 cm (5' 3.58 ) 02/10/2018 [...] Where can I go for more information? [employer] ( ) www.aap.org HealthyChildren.org www.healthychildren.org U.S. Department of Health and Human Services www.hhs.gov Website and free downloadable carline for smartphones: http://www.[employer]/ Use safety retraint in car Lifestyle On track( 018 11:08 AM CDT) No Klaudia Márquez RN KARIN OG Personal/Family [address] [place] [address]
--- OUTSIDE RECORDS SUMMARY | 2024-08-12 13:40 | XMS_ITS | Clinical Summary ---
Author Organization [facility] Address [address] [place] [address] Care Team Providers Care Foam Caster Name Role Phone Unavailable Primary Care Provider Unavailabl e Source Comments [facility],non-owned Affiliates and Associated Physician Practices is amultiple site organization consisting of ambulatory clinics and hospital sitesin [place], [place], [place] and [place]. This disclosure is being madepursuant to the Care Everywhere program and may not contain all information available regarding this patient. Last updated 18.[employer] Allergies No known active allergies Medications * [...] Comments Blood Pressure 112/71 08/03/2018 2:54 PM FUNDRAISING CONSULTANT Pulse 66 08/03/2018 2:54 PM FUNDRAISING CONSULTANT Temperature 36.2 C (97.2 F) 08/03/2018 2:54 PM FUNDRAISING CONSULTANT Respiratory Rate 24 12/31/2010 3:32 PM CDT Oxygen Saturation - - Inhaled Oxygen Concentration - - Weight 64.9 kg (143 lb) 08/03/2018 2:54 PM FUNDRAISING CONSULTANT Height 161.5 cm (5' 3.58 ) 02/10/2018 [...] Where can I go for more information? [place] [employer] ( ) www.aap.org HealthyChildren.org www.healthychildren.org U.S. Department of Health and Human Services www.hhs.gov Website and free downloadable carline for smartphones: http://www.[employer]/ Use safety retraint in car Lifestyle On track( 018 11:08 AM CDT) No Klaudia Márquez, VIN KARIN OG Personal/Family [address] [place] [address]
--- OUTSIDE RECORDS SUMMARY | 2024-08-12 13:40 | XMS_ITS | Patient Health Summary ---
Author Organization [facility] Address [address] [place] [address] Care Team Providers Care Poured Pipe Maker Name Role Phone Unavailable Primary Care Provider Unavailabl e Note from [facility],non-owned Affiliates and Associated Physician Practices is amultiple site organization consisting of ambulatory clinics and hospital sitesin [place], [place], [place] and [place]. This disclosure is being madepursuant to the Care Everywhere program and may not contain all information available regarding this patient. Last updated 18.[facility] Allergies No known active allergies Medications * [...] Comments Blood Pressure 112/71 08/03/2018 2:54 PM EXECUTIVE ASSOCIATE Pulse 66 08/03/2018 2:54 PM EXECUTIVE ASSOCIATE Temperature 36.2 C (97.2 F) 08/03/2018 2:54 PM EXECUTIVE ASSOCIATE Respiratory Rate 24 12/31/2010 3:32 PM CDT Oxygen Saturation - - Inhaled Oxygen Concentration - - Weight 64.9 kg (143 lb) 08/03/2018 2:54 PM EXECUTIVE ASSOCIATE Height 161.5 cm (5' 3.58 ) 02/10/2018 [...] CDT 02/06/2018 Narrative Resulting Agency Comment [facility] [address] [phone] Kristofer Chen DO LAB - MICROBIOL OGY ORDERABLES [facility] INSURANCE BILL [address] [place] [address] * CULTURE ROUTINE (06/22/2013 5:12 PM EXECUTIVE ASSOCIATE) Aerobic Bacterial Culture Final report [facility] ACCOUNT BILL Result 1 [facility] ACCOUNT BILL Comment:No growth in 36 - 48 hours. ABSCESS OF SKIN AND/OR SUBCUTANEOUS TISSUE / Unknown 06/22/2013 5:12 PM EXECUTIVE ASSOCIATE 06/22/2013 9:35 PM EXECUTIVE ASSOCIATE Narrative Resulting Agency Comment [facility] [address] [id number] Kathy Velez MD LAB - MICROBIOLOGY O RDERABLES [facility] ACCOUNT BILL * STREP A SCREEN - POINT OF CARE (AMB) (04/08/2011 1:41 PM CDT) Strep A Rapid POCT negative NEGATIVE - POSITIVE Strep A Internal Control NEGATIVE - POSITIVE ENTIRE THROAT (SURFACE REGION OF NECK) / Unknown Tiffanie Thompson MD LAB - POINT OF CARE ORDERABLES * CULTURE STREP GROUP A (04/08/2011 1:38 PM CDT) Beta-Strep Culture, Group A Only Negative [facility] ACCOUNT BILL Miscellaneous samples (specimen) ENTIRE THROAT (SURFACE REGION OF NECK) / Unknown 04/08/2011 1:38 PM CDT 04/08/2011 9:28 PM CDT Narrative Resulting Agency Comment [facility] [phone] Tiffanie Thompson MD LAB - MICROBIOLOGY O RDERABLES Performing Organization Address [facility] Co de Phone Number [facility] ACCOUNT BILL [...] 9:33 PM CDT Narrative Resulting Agency Comment [facility] [phone] Tiffanie Thompson MD LAB - URINE CHEMISTR Y ORDERABLES Performing Organization Address [facility] de Phone Number [facility] ACCOUNT BILL * [...] PM CDT Narrative Resulting Agency Comment [facility] [address] [phone] Tiffanie Thompson MD LAB - CHEMISTRY ORDSunshine [facility] ACCOUNT BILL * CULTURE URINE (02/08/2010 4:52 PM CDT) Urine Culture Routine Final report [facility] ACCOUNT BILL Result 1 No growth [facility] ACCOUNT BILL URINE / Unknown 02/08/2010 4 :52 PM CDT 02/08/2010 9:53 PM CDT Narrative Resulting Agency Comment [facility] [address] [phone] Tiffanie Thompson MD LAB - MICROBIOLOGY O RDERABLES [facility] ACCOUNT BILL * (ABNORMAL) URINALYSIS ROUTINE AUTO (02/08/2010 4:38 PM CDT) Only the most recent of2 resultswithin the time period is included. Specific [place] UA 1.027 1.005 - 1.030 [facility] ACCOUNT [...] PM CDT Narrative Resulting Agency Comment [facility] [address] [id number] Tiffanie Thompson MD LAB - URINALYSIS ORD [...] PM CDT Narrative Resulting Agency Comment [facility] [address] [facility] [id number] Tiffanie Thompson MD LAB - URINALYSIS ORD [...] pH units Blood UA 250 Negative Specific [place] UA POCT 1.015 1.002 - 1.030 Ketone UA neg Negative Bilirubin UA POCT neg Negative Glucose UA neg Negative Urine specimen (specimen) URINE / Unknown 02/08/2010 4:31 PM CDT Tiffanie Thompson MD LAB - POINT OF CARE ORDERABLES
[2024-08-12 14:10] LABS: Syphilis IgG/IgM Antibody Negative (Negative)
[2024-08-12 14:15] LABS: Hepatitis B Surface Antigen Negative (Negative); Rubella IgG Antibody 58.6 IU/ML
[2024-08-12 14:32] LABS: Hepatitis C Virus Antibody Negative (Negative)
[2024-08-13 12:28] LABS: Varicella IgG Antibody <1.00 S/CO
[2024-08-13 18:28] LABS: Hematocrit 36.3 % (35.0-45.0); Hemoglobin 12.3 g/dL (11.7-15.5); MCH 31.3 pg (27.0-33.0); MCV 92.4 fL (80.0-100.0); RDW 12.6 % (11.0-15.0); Red Blood Cell Count 3.93 Million/uL (3.80-5.10)
== END 2024-08-12 12:27 | disposition home or self-care (01) ==
LOC: ANHLAB 12:28
PROVIDERS: PCP Internal Medicine; Visit Provider Obstetrics & Gynecology
DX: Z34.90 Encounter for supervision of normal pregnancy, unspecified, unspecified trimester (principal)
CPT/HCPCS: 36415; 81003; 83021; 84443; 85027; 85055; 86593; 86762; 86787; 86803; 86850; 86900; 86901; 87086; 87340

== ENCOUNTER 2024-11-23 09:49 | Outpatient (RCR) | payer OTHER, SELFPAY ==
[2024-11-23 11:34] LABS: Hematocrit 33.5 % (37.0-47.0); Hemoglobin 11.6 g/dL (12.0-15.0); Mean Corpuscular HGB Conc 34.6 g/dl (32-36); Mean Corpuscular Hemoglobin 31.5 pg (26-34); Mean Corpuscular Volume 91.0 fl (80-100); Platelet Count Result 178 k/mm3 (150-375); Red Blood Count 3.68 M/mm3 (4.2-5.4); White Blood Count 9.0 K/mm3 (4.5-10.0)
[2024-11-23 12:37] LABS: Glucose 1 Hour PP 50gm Dose 129 mg/dL
[2024-11-24] MEDS: RHO(D) IMMUNE GLOBULIN 300 MCG/2 ML SYRINGE IM (18:16)
== END 2025-02-21 23:59 | disposition home or self-care (01) ==
LOC: ANHLAB 09:49
PROVIDERS: PCP Internal Medicine; Visit Provider Nurse Practitioner Obstetrics & Gynecology
DX: Z29.13 Encounter for prophylactic Rho(D) immune globulin (principal); O36.0190 Maternal care for anti-D [Rh] antibodies, unspecified trimester, not applicable or unspecified; Z3A.00 Weeks of gestation of pregnancy not specified
CPT/HCPCS: 36415; 82947; 85027; 85461; 86850; 86900; 86901; 90384; 96372; J2790

== ENCOUNTER 2024-12-29 11:13 | Outpatient (CLI) | payer OTHER, SELFPAY ==
--- OUTSIDE RECORDS SUMMARY | 2024-12-29 11:24 | XMS_ITS | Encounter Summary ---
Author Organization [facility] Address [address] [place] [address] Care Team Providers Care Commercial Lending Relationship Manager Name Role Phone Unavailable Primary Care Provider Unavailabl e Reason for Visit * Radiology Services (Routine) - Authorized Specialty Diagnoses / Procedures Referred By Dwayne low Referred To Contact Diagnoses Encounter for other screening follow-up Procedures US OB FOLLOW UP PER FETUS Kody Deluca MD [address] [facility] [address] [place] [address] Phone: tel: fax: [facility] [address] [address] [place] [address] Phone: tel: fax: Referral ID Status Reason Start Date Expiration Date V isits Requested Visits Authorized [id number] Authorized 12/16/2024 01/16/2026 1 1 Encounter Details Date Type Department Care Team (Late st Contact Info) Description 12/29/2024 1:30 PM CDT [facility] [address] [place] [address] [place] [address] Kody Deluca MD [address] [facility] [address] [place] [address] Social History Tobacco Use Types Packs/Day Years Used Date Smoking Tobacco: Never Assessed Comments Unknown Sex and Gender Information Value Date Recorded Sex Assigned at Not on file Legal Sex Female 2:44 PM APRICOT PACKER Gender Identity Not on file Sexual Orientation Not on file documented as of this encounter Plan of Treatment Scheduled Orders Name Type Priority Associated Diagnoses Orde r Schedule US OB FOLLOW UP PER FETUS Imaging Routine Encounter for other screening follow-up 1 Occurrences starting 12/16/2024 until 12/16/2025 documented as of this encounter Visit Diagnoses Not on filedocumented in this encounter
--- OUTSIDE RECORDS SUMMARY | 2024-12-29 11:24 | XMS_ITS | Clinical Summary ---
Author Organization [facility] Address [address] [place] [address] Phone Care Team Providers Care Spanish Language Lecturer Name Role Phone Unavailable Primary Care Provider Unavailabl e Encounters Date Type Department Care Team Description 12/29/2024 1:30 PM CDT Hospital Encounter [facility] [place] [facility] [id number] [facility] [place] [address] Kody Deluca MD 12/22/2024 External Device Data STL ABSTRACTION Provider, Abstract 12/22/2024 External Device Data STL ABSTRACTION Provider, Abstract 11/23/2024 External Device Data STL ABSTRACTION Provider, Abstract 11/02/2024 External Device Data STL ABSTRACTION Provider, Abstract 10/29/2024 External Device Data STL ABSTRACTION Provider, Abstract 10/27/2024 External Device Data STL ABSTRACTION Provider, Abstract 10/26/2024 External Device Data STL ABSTRACTION Provider, Abstract from Last 3 Months Social History Tobacco Use Types Packs/Day Years Used Date Smoking Tobacco: Never Assessed Comments Unknown Sex and Gender Information Value Date Recorded Sex Assigned at Not on file Legal Sex Female 2:44 PM FUND DEVELOPMENT MANAGER Gender Identity Not on file Sexual Orientation Not on file Plan of Treatment Upcoming Encounters Date Type Department Care Team (Late st Contact Info) Description 12/29/2024 1:30 PM CDT Hospital Encounter [facility] [address] [facility] [place] [address] Kody Deluca MD [address] [facility] [address] [facility] [address] [place] [address] Health Maintenance Due Date Last Done Comments CHLAMYDIA SCREENING (ANNUAL) 11-24 YEARS 2012 CERVICAL CANCER SCREENING 2022 HPV/Cotest (21-29) 2022 PAP SMEAR 2022 DTAP/TDAP/TD VACCINES (7 - T d or Tdap) 11/17/2022 11/17/2012, 08/18/2006, 02/28/2003, Additional history exists INFLUENZA VACCINE (#1) 2025 HEPATITIS B VACCINES Completed 05/17/2002, 2001, 2001 HPV VACCINES Completed 06/17/2013, 01/07, 11/20/2012 Insurance MEDICAID
--- OUTSIDE RECORDS SUMMARY | 2024-12-29 11:24 | XMS_ITS ---
Author Organization Unknown Address [address] [place] [phone] Phone Care Team Providers Care Water/Wastewater Project Manager Name Role Phone RAMÍREZ Parrish Attending Unavailable [...] 114 CVX Tdap 11/17/2012 Completed 115 CVX [id number]-Zjm-PGA 2001 Completed 120 CVX GEaC-Bpc-XPS 2001 Completed 120 CVX Pneumococcal Conjugate, unspecified formulation 08/16/2002 Completed 152 CVX Results TEST URINE - Colle ct Date/Time: 12/31/2023 10:34 [facility] ID: [id number] [place], [place], [id number] LOINC: Test Value Unit Reference Range Code Code System Flag URINE PREG NEGATIVE Social History Type Status Start Date End Date Code Code Syst em Smoking History Never smoker (Never Smoked) 359567971 SNOMED CT Sex Female Vital Signs Vital Sign Value Unit [place] Value [place] Unit Date/Time Recent/Initial? Code Code System Body Mass Index 23.69 kg/m2 12/15/2023 13:39 Initial 02278 -5 LOINC Systolic Blood Pressure 111 mm[Hg] 12/31/2023 10:38 Initial 8480- 6 LOINC Diastolic Blood Pressure 59 mm[Hg] 12/31/2023 10:38 Initial 8462- 4 LOINC Body Surface Area 1.68 m2 12/15/2023 13:39 Initial 3140- 1 LOINC Height 162.560 0 cm 64.00 in 12/15/2023 13:39 Initial 8302- 2 LOINC O2 Saturation 99 % 2023 10:38 Initial 43512 -5 LOINC Pulse 69.0 /min 12/31/2023 10:38 Initial 8867- 4 LOINC Respiration 16 /min 12/31/19 10:38 Initial 9279- 1 LOINC Temperature 36.9 Angela 98.4 F 12/31/19 10:38 Initial 8310- 5 LOINC Weight 62.60 kg 138.00 lbs 12/15/2023 13:39 Initial 95235 -7 LOINC Medications Medication Start Date End Date Route Frequency Dose Code Code System Medication Instructions Home Meds Daysee 30MCG-0.15MG;0.01MG Oral Tablet 12/31/2023 Unknown ORAL ONCE A DAY 1 unit(s) 4375106 RxNorm TAKE 1 EACH ORAL ONCE A DAY Nystatin/Triamcinolo ne Acetonide 590465V-3BX/1GM Topical application Ointment 12/31/2023 Unknown TOPICAL APPLICATI ON TWICE A DAY 1 unit(s) 2658579 RxNorm 1 EACH TOPICAL APPLICAT ION TWICE A DAY Triamcinolone Acetonide 0.5% Topical application Cream 12/31/2023 Unknown TOPICAL APPLICATI ON TWICE A DAY 1 unit(s) 9926072 RxNorm 1 EACH TOPICAL APPLICAT ION TWICE A DAY MiraLAX 17GM/1Dose Oral Powder for Solution 12/31/2023 Unknown BY MOUTH 1 859878 RxNorm TAKE 1 BY MOUTH FOR CONSTIPA [...] including collection of specimen(s) by 12/31/2023 completed 07473 CPT Anesthesia for lower intesti nal endoscopic procedures, endoscope introduce 12/31/2023 completed 52595 CPT Allergies and Adverse Reactions Allergy Substance Reaction Severity Start Date Concern Status Co de Code System No Known Allergies Active [id number] SNO MED-CT Plan of Treatment Colonoscopy 12/31/2023 Encounters Encounter Diagnosis Start Date Code Code Sys tem Constipation, unspecified 12/31/2023 SN OMED-CT Personal Care Team Section Procedures Notes
--- OUTSIDE RECORDS SUMMARY | 2024-12-29 11:24 | XMS_ITS | Clinical Summary ---
Author Organization [facility] Address [address] [place] [address] Care Team Providers Care Supervisor Liquefaction Name Role Phone Unavailable Primary Care Provider Unavailabl e Source Comments [facility],non-owned Affiliates and Associated Physician Practices is amultiple site organization consisting of ambulatory clinics and hospital sitesin [place], [place], [place] and [place]. This disclosure is being madepursuant to the Care Everywhere program and may not contain all information available regarding this patient. Last updated 18.Red [facility] Allergies No known active allergies Medications * Be aware that medications may not be up to date on this document. Alwaysverify current medications with the patient. levonorgestrel-e thinyl estradiol (CAMRESE) 0.15-0.03 &0.01 MG tablet Take [...] 04/04/06 Cellulitis 11/17/2012 Overview (03/20/2009): 08/26/06 Immunizations Immunization Administration Dates Next Due DTaP VACCINE IM (6wk-6yrs) 08/18/2006,,02/15/2002,12/14,2001 HEP A PEDS 2 DOSE 12/31/2010,08/18/2006 HEP B VACCINE, PED/ADOL 05/17/2002,2001, HIB BOOSTER 02/28/2003, 2,2001,10/15 Human Papilloma Virus Alden valent Vaccine 06/17/2013,01/21/2013,11/20/2012 MENINGOCOCCAL ACWY (MCV4P) VAC IM 02/10/2018, MMR 08/18/2006,08/16/2002 PNEUMOCOCCAL CONJ, PEDS 08/16/2002,02/15,2001,10/15 POLIO IPV 08/18/2006, 3,2001,10/15 PPD 08/18/2006,08/16/2002 TDAP (7yrs+) 11/17/2012 VARICELLA 08/18/2006,11/19/2002 Social History Tobacco Use Types Packs/Day Years Used Date Smoking Tobacco: Never Smokeless Tobacco: Never Comments:parents Alcohol Use Standard Drinks/Week Comments Not Asked 0 (1 standard drink = 0.6 oz pur e alcohol) Comments No Sex and Gender Information Value Date Recorded Sex Assigned at Not on file Legal Sex Female 6:42 AM NETWORK MANAGER Gender Identity Not on file Sexual Orientation Not on file 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 Not on file Not on file IBC Not on file Not on file Not on file Last Filed Vital Signs Vital Sign Reading Time Taken Comments Blood Pressure 112/71 08/03/2018 2:54 PM NETWORK MANAGER Pulse 66 08/03/2018 2:54 PM NETWORK MANAGER Temperature 36.2 C (97.2 F) 08/03/2018 2:54 PM NETWORK MANAGER Respiratory Rate 24 12/31/2010 3:32 PM CDT Oxygen Saturation - - Inhaled Oxygen Concentration - - Weight 64.9 kg (143 lb) 08/03/2018 2:54 PM NETWORK MANAGER Height 161.5 cm (5' 3.58) 02/10/2018 11:08 AM C DT Body Mass Index - - Plan of Treatment Health Maintenance Due Date Last Done Comments HIV SCREENING 2016 CHLAMYDIA/GONORRHEA SCREENING 2017 MENINGOCOCCAL (Group B) VACC INE SHARED DECISION-MAKING (1 of 2 - Standard) 2017 HEPATITIS C SCREENING 08/09/2019 DTAP/TDAP/TD VACCINES (7 - T d or Tdap) 11/17/2022 11/17/2012, 08/18/2006, 02/28/2003, Additional history exists COVID-19 VACCINE ( - 2023-2 5 season) 2024 DEPRESSION SCREENING 06/09/2024 INFLUENZA VACCINE (#1) 2025 ZOSTER VACCINE (1 of 2) 08/14/2051 HEPATITIS B VACCINE Completed 05/17/2002, 2001, 2001 PNEUMOCOCCAL VACCINE Completed 08/16/2002, 02/15/2002, 2001, Additional history exists HIB VACCINE Completed 02/28/2003, 02/2002, 2001, Additional history exists HPV VACCINE Completed 06/17/2013, 01/07, 11/20/2012 MENINGOCOCCAL GROUPS A/C/Y/W VACCINE Completed 02/10/2018, 11/20/2012 Goals Goal Patient Goal Type Associated Problems [...] Where can I go for more information? [place] [employer] ( ) www.aap.org HealthyChildren.org www.healthychildren.org U.S. Department of Health and Human Services www.hhs.gov Website and free downloadable carline for smartphones: http://www.Road Hero/ Use safety retraint in car Lifestyle On track( 018 11:08 AM CDT) No Klaudia Márquez RN Insurance [facility] * Guarantor: KARIN OG Account Type Relation to Patient Date of Phone Billing Address Personal/Family [address] [place] [address]
[2024-12-29 11:40] LABS: Hematocrit 33.0 % (37.0-47.0); Hemoglobin 11.6 g/dL (12.0-15.0); Mean Corpuscular HGB Conc 35.2 g/dl (32-36); Mean Corpuscular Hemoglobin 31.2 pg (26-34); Mean Corpuscular Volume 88.7 fl (80-100); Platelet Count Result 187 k/mm3 (150-375); Red Blood Count 3.72 M/mm3 (4.2-5.4); White Blood Count 9.2 K/mm3 (4.5-10.0)
[2024-12-29 12:28] LABS: Syphilis IgG/IgM Antibody Non-Reactive (Nonreactive)
[2024-12-29 12:49] LABS: HIV 1/2 Ab P24 Ag Result Negative (Negative)
== END 2024-12-29 11:14 | disposition home or self-care (01) ==
LOC: ANHLAB 11:15
PROVIDERS: PCP Internal Medicine; Visit Provider Obstetrics & Gynecology
DX: Z34.90 Encounter for supervision of normal pregnancy, unspecified, unspecified trimester (principal)
CPT/HCPCS: 36415; 85027; 86593; 86703; G0432

== ENCOUNTER 2025-01-19 13:32 | Outpatient (RCR) | payer OTHER, SELFPAY ==
--- NOTE | 2024-12-04 21:37 | PC.NURSE ---
Dr. Coffey called @ 2119 to [place] pt called and on her way. Order to monitor pt for 1 hr, if pt is feeling good movement and NST is reactive, discharge pt home undelivered.
[2024-12-04 21:40] VITALS: TEMP 36.7
--- NOTE | 2024-12-04 22:42 | PC.NURSE ---
Pt stated that she is feeling baby move his normal amount and she feels comfortable going home. Discussed discharge instructions, pt stated understanding. All questions and concerns answered. Pt discharged home in stable condition per order from Dr. Coffey. Pt ambulated out of department with all belongings, S.O @ pt side.
[2024-12-04 23:45] VITALS: BP 124/75; PULSE 115
--- NOTE | 2024-12-04 23:55 | PC.NURSE ---
Pt stated that she has been feeling baby move less then his normal. Pt denies any complications during , no leaking of fluid, bleeding or ctx. Pt hooked up to FHR, CTX, BP and given clicker to monitor baby movement.
--- NOTE | ~2025-01-19 | US_ITS ---
EXAMINATION: US OB BPP wo non-stress DATE: 01/19/2025 15:20 INDICATION: KITTY/ decreased movement and variable decel . TECHNIQUE: Real-time ultrasound of the pelvis was performed. COMPARISON: 08/03/2024 FINDINGS: There is a single living fetus in vertex presentation, longitudinal lie. The placenta is anterior, w ell distant from the cervix. heart rate is 157 bpm. The amniotic fluid index is 19.8 cm, which is normal (5th to 95th percentile is 7.7 to 24.9 cm). Biophysical profile performed by the technologist: breathing (30 sec sustained breathing in 30 minutes): 2 out of 2. movement (3 gross body movements in 30 minutes: 2 out of 2. tone (one episode of snaxpzg-vnbeuxslt-yyuustj limb movement): 2 out of 2. Amniotic fluid pocket (2 cm): 2 out of 2. Total score: 8 out of 8. IMPRESSION: Single living fetus in vertex presentation. Biophysical profile 8 out of 8. Normal KITTY. Reviewed, dictated and finalized at location K.
[2025-01-19 16:23] VITALS: BP 112/70; PULSE 79
== END 2025-02-03 13:33 | disposition other institution (70) ==
LOC: ANHOBOP 13:32
PROVIDERS: PCP Internal Medicine; Visit Provider Obstetrics & Gynecology
DX: O36.8130 Decreased fetal movements, third trimester, not applicable or unspecified (principal); Z3A.30 30 weeks gestation of pregnancy; Z3A.36 36 weeks gestation of pregnancy
CPT/HCPCS: 59025; 76819

== ENCOUNTER 2025-01-28 22:00 | Outpatient (CLI) | payer OTHER, SELFPAY ==
--- OUTSIDE RECORDS SUMMARY | 2025-01-28 23:31 | XMS_ITS | Clinical Summary ---
Author Organization [facility] Address [address] [place] [address] Phone Care Team Providers Care Terrazzo Layer Helper Name Role Phone Unavailable Primary Care Provider Unavailabl e Encounters Date Type Department Care Team Description 12/29/2024 1:13 PM CDT - 12/29/2024 11:59 PM CDT Hospital Encounter [facility] Maternal and Ground Floor S [facility], [facility] [address] [place] [address] Kody Ayala MD Discharge Disposition: Home or Self Care 12/22/2024 External Device Data STL ABSTRACTION Provider, [...] on file 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 Gender Identity Not on file Sexual Orientation Not on file Plan of Treatment Health Maintenance Due Date Last Done Comments CHLAMYDIA SCREENING (ANNUAL) 11-24 YEARS 2012 CERVICAL CANCER SCREENING 2022 HPV/Cotest (21-29) 2022 PAP SMEAR 2022 DTAP/TDAP/TD VACCINES (7 - T d or Tdap) 11/17/2022 11/17/2012, 08/18/2006, 02/28/2003, Additional history exists INFLUENZA VACCINE (#1) 2025 HEPATITIS B VACCINES Completed 05/17/2002, 2001, 2001 HPV VACCINES Completed 06/17/2013, 01/07, 11/20/2012 Procedures Procedure Name Priority Date/Time Associated Diagnosis Comments US OB FOLLOW UP PER FETUS Routine 12/29/2024 1:59 PM CDT Encounter for other screening follow-up from Last 3 Months Results * US OB FOLLOW UP PER FETUS (12/29/2024 1:59 PM CDT) Anatomical Region Laterality Modality Pelvis Ultrasound 12/29/2024 1:35 PM CDT Narrative 12/29/2024 2:02 PM CDT STL FOLLOW UP ----- Pat. Name: KARIN OG Study Date: 12/29/2024 1:35pm Pat. NO: [id number] Referring MD: KODY AYALA MD Site: [facility] Remote Pilot Operator: Elio Car RDMS : 2000 Age: 24 ----- INDICATION ----- Screening Follow-Up Large for dates CODING ----- Diagnoses Z3A.33: Weeks of gestation O36.63X0: Maternal care for excessive growth Z36.2: Encounter for other screening follow-up Procedures 29071: Ultrasound, uterus, real time with image documentation, follow up, transabdominal approach per fetus MATERNAL ASSESSMENT ----- Physical Exam Weight 84 kg. BMI 31.76 kg/m METHOD ----- Transabdominal ultrasound examination ----- Olivera . Number of fetuses: 1 DATING ----- Cycle: regular cycle GA by prior assessment 33 w + 4 d HORACE by prior assessment: 02/12/2025 Ultrasound examination on: 12/29/2024 GA by U/S based upon: AC, BPD, EFW, Femur, HC GA by U/S 35 w + 1 d HORACE by U/S: 02/01/2025 Method of dating: Restore dating from previous exam Assigned: based on stated HORACE, selected on 09/27/2024 Assigned GA 33 w + 4 d Assigned HORACE: 02/12/2025 BIOMETRY ----- BPD 89.4 mm 36w 1d 97% Hadlock OFD 115.3 mm -/- >99% Greg HC 327.2 mm 37w 1d 93% Hadlock AC 314.7 mm 35w 3d 93% Hadlock Femur 62.8 mm 32w 4d 15% Hadlock HC / AC 1.04 46% Nicolaides Weight Calculation: EFW 2,540 g 34w 5d 80% Hadlock EFW (lb,oz) 5 lb 10 oz EFW by Hadlock ([id number]) Extremities / Bony Struc Biometry: FL / BPD 0.70 FL / HC 0.19 FL / AC 0.20 GENERAL EVALUATION ----- Cardiac activity present. FHR 153 bpm. movements: present. Presentation: cephalic Placenta: anterior Umbilical cord: Cord vessels: 3 vessel cord. Insertion site: placental insertion: normal Amniotic fluid: Amount of AF: normal amount. MVP 7.6 cm. KITTY 21.3 cm. Q1 2.3 cm, Q2 7.6 cm, Q3 5.7 cm, Q4 5.6 cm ANATOMY ----- The following structures appear normal: Head / Neck Cranium. Heart / Thorax 4-chamber view. Diaphragm. Abdomen Stomach. Kidneys. Bladder. sex: male. GROWTH OVERVIEW ----- Exam date GA BPD (mm) HC (mm) AC (mm) FL (mm) HL (mm) EFW (g) 09/27/2024 20w 2d 49.5 77% 192.4 89% 164.7 82% 33.6 51% 32.9 80% 400 86% 12/29/2024 33w 4d 89.4 97% 327.2 93% 314.7 93% 62.8 15% 2,540 80% COMMENT ----- Patient's name and date of were verified by the retail department manager prior to the exam IMPRESSION ----- Olivera @ 33w 4d referred to check growth. - The biometry is consistent with dates with the EFW at the 80% percentile. - Amniotic fluid indices are within normal limits. - Limited anatomy is unremarkable. Further ultrasounds may be scheduled as clinically indicated. Thank you for allowing us to participate in the care of this patient. Procedure Note Giuliana Gomez MD - 12/29/2024 STL FOLLOW UP ----- Pat. Name:Tasneem OG Date:12/29/2024 1:35pm Pat. NO: [id number] :KODY AYALA MD [facility]Elio Car RDMS :2000Age:24 ----- INDICATION ----- Screening Follow-Up Large for dates CODING ----- Diagnoses Z3A.33: Weeks of gestation O36.63X0: Maternal care for excessive fetalgrowth Z36.2: Encounter for other screeningfollow-up Procedures 45270: Ultrasound, uterus, real time withimage documentation, follow up, transabdominal approach per fetus MATERNAL ASSESSMENT ----- Physical Exam Weight 84 kg. BMI 31.76 kg/m METHOD ----- Transabdominal ultrasound examination ----- Olivera . Number of fetuses: 1 DATING ----- Cycle:regular cycle GA by prior [id number] w + 4 d HORACE by prior assessment:02/12/2025 Ultrasound examination on:12/29/2024 GA by U/S based upon:AC, BPD, EFW, Femur, HC GA by U/S35 w + 1 d HORACE by U/S:02/01/2025 Method of dating:Restore dating from previous exam Assigned:based on stated HORACE, selected on 09/27/2024 Assigned GA33 w + 4 d Assigned HORACE:02/12/2025 BIOMETRY ----- BPD 89.4 mm 36w 1d 97%Hadlock OFD 115.3 mm -/- >99%Greg HC 327.2 mm 37w 1d 93%Hadlock AC 314.7 mm 35w 3d 93%Hadlock Femur 62.8 mm 32w 4d 15%Hadlock HC / AC 1.04 46%Nicolaides Weight Calculation: EFW 2,540 g 34w 5d80% Hadlock EFW (lb,oz) 5 lb 10 oz EFW by Hadlock ([id number]) Extremities / Bony Struc Biometry: FL / BPD 0.70 FL / HC 0.19 FL / AC 0.20 GENERAL EVALUATION ----- Cardiac activity present. FHR 153 bpm. movements: present.Presentation: cephalic Placenta: anterior Umbilical cord: Cord vessels: 3 vessel cord. Insertion site: placentalinsertion: normal Amniotic fluid: Amount of AF: normal amount. MVP 7.6 cm. KITTY 21.3 cm. Q12.3 cm, Q2 7.6 cm, Q3 5.7 cm, Q4 5.6 cm ANATOMY ----- The following structures appear normal: Head / Neck Cranium. Heart / Thorax 4-chamber view. Diaphragm. Abdomen Stomach. Kidneys. Bladder. sex: male. GROWTH OVERVIEW ----- Exam date GA BPD (mm) HC (mm) AC (mm) FL(mm) HL (mm) EFW (g) 09/27/2024 20w 2d 49.5 77% 192.4 89% 164.7 82%33.6 51% 32.9 80% 400 86% 12/29/2024 33w 4d 89.4 97% 327.2 93% 314.7 93%62.8 15% 2,540 80% COMMENT ----- Patient's name and date of were verified by the retail department manager prior tothe exam IMPRESSION ----- Olivera @ 33w 4d referred to check growth. - The biometry is consistent with dates with the EFW at the 80%percentile. - Amniotic fluid indices are within normal limits. - Limited anatomy is unremarkable. Further ultrasounds may be scheduled as clinically indicated. Thank you for allowing us to participate in the care of this patient. us Kody Ayala MD US ORDERABLES Final Result from Last 3 Months Insurance [facility] MEDICAID
[2025-01-28 23:43] VITALS: BP 118/83; PULSE 87
--- NOTE | 2025-01-28 23:46 | PC.NURSE ---
Pt discharged home undelivered in stable condition per order from Dr. Coffey. Discharge instructions explained to pt, pt stated understanding, all questions and concerns answered. Pt ambulated out of department with all belongings. S.O @ pt side.
== END 2025-01-28 23:48 | disposition home or self-care (01) ==
PROVIDERS: PCP Internal Medicine; Visit Provider Obstetrics & Gynecology
DX: Z34.90 Encounter for supervision of normal pregnancy, unspecified, unspecified trimester (principal); Z3A.00 Weeks of gestation of pregnancy not specified
CPT/HCPCS: 59025

== ENCOUNTER 2025-01-31 20:51 | Inpatient (IN) | payer OTHER, SELFPAY ==
[2025-01-31] VITALS (8 sets, daily range): BP systolic 130; BP diastolic 77; PULSE 69–95; RESP 16; TEMP 36.8; O2SAT 100; BMI 33.5
--- NOTE | 2025-01-31 21:54 | LDADM ---
This patient, Jami Og, was admitted to Labor/Delivery/Recovery 106 on 01/31/25 at 20:51. Plans for labor, pain management and were discussed with patient. Patient/family oriented to hospital policies and general routines including ID bracelet, bed and alarms, visiting hours, pain management, procedures, bathroom and other care routines, personal items, smoking policy, room service/diet and guest tray routines, infant security routines, and visiting hours. Patient/Family are encouraged to report perceived risks to care and to ask questions if they do not understand what they are told or what they should do. See OBIX for further documentation.
[2025-01-31 22:10] LABS: Hematocrit 35.5 % (37.0-47.0); Hemoglobin 12.2 g/dL (12.0-15.0); Immature Granulocyte Percent A 0.4 % (0-0.5); Lymphocytes Absolute Auto 1.78 K/mm3 (0.9-3.2); Mean Corpuscular HGB Conc 34.4 g/dl (32-36); Mean Corpuscular Hemoglobin 30.3 pg (26-34); Mean Corpuscular Volume 88.1 fl (80-100); Nucleated Red Blood Cells Absolute Auto 0.000 K/mm3 (0.0-0.012); Nucleated Red Blood Cells Perc 0.0 % (0.0-0.2); Platelet Count Result 224 k/mm3 (150-375); Red Blood Count 4.03 M/mm3 (4.2-5.4); White Blood Count 10.6 K/mm3 (4.5-10.0)
[2025-01-31] MEDS: LACTATED RINGERS 1,000 ML 125 ML IV CONT (22:11)
[2025-01-31] MEDS: AMPICILLIN SODIUM 2 GM in SODIUM CHLORIDE 0.9% IV 100 ML 200 ML IVPB (22:12)
[2025-01-31 23:04] LABS: Syphilis IgG/IgM Antibody Non-Reactive (Nonreactive)
[2025-02-01] VITALS (195 sets, daily range): BP systolic 65–143; BP diastolic 37–107; PULSE 54–157; RESP 16–20; TEMP 36.6–37; O2SAT 73–100
[2025-02-01] MEDS: OXYTOCIN 30 UNITS/NS 500 ML 30 UNITS/500 ML BAG IV CONT (00:30)
[2025-02-01 00:52] LABS: Alanine Aminotransferase 14 U/L (6-35); Albumin Level 3.9 g/dL (3.5-5.1); Alkaline Phosphatase 151 U/L (38-126); Anion Gap 10 mmol/L (4-12); Aspartate Amino Transferase 30 U/L (14-36); Bilirubin,Total 0.6 mg/dL (0.2-1.3); Blood Urea Nitrogen 11 mg/dL (7-17); Calcium 9.5 mg/dL (8.4-10.2); Carbon Dioxide 23 mmol/L (22-30); Chloride 104 mmol/L (98-107); Estimated CRCL calculation 128 ml/min; Estimated Glomerular Filt Rate > 60; Glucose 71 mg/dL (65-110); Potassium 3.8 mmol/L (3.4-5.0); Sodium 137 mmol/L (137-145); Total Protein 7.3 g/dL (6.3-8.2); Uric Acid 5.9 mg/dL (2.5-7.5)
[2025-02-01] MEDS: AMPICILLIN SODIUM 1 GM in SODIUM CHLORIDE 0.9% IV 50 ML 100 ML IVPB ×3 (02:30→10:33)
--- NOTE | 2025-02-01 03:31 | WPDANESEPP ---
Anes - Eval Pre Procedure Procedure: Labor Epidural Date/Time: 02/01/25 03:31 Surgeon: mike Preop Diagnosis: Labor Pain Pre Op Diagnosis: leaking Patient Data Age: 24 Gender: F Height: 1.63 m Weight: 88.63 kg Last Vital Signs Temp 36.6 C 02/01/25 01:30 Pulse 75 02/01/25 01:00 Resp 18 02/01/25 01:30 BP 126/79 02/01/25 01:00 Pulse Ox 100 02/01/25 03:28 Allergies Allergy/AdvReac Type Severity Reaction Status Date / Time No Known Allergies Allergy Verified 01/31/25 21:53 Home Medications ?Medication ?Instructions ?Recorded ?Confirmed ?Type docosahexaenoic acid 200 mg 200 mg PO HS 09/15/24 01/31/25 History capsule ( DHA) ferrous sulfate 325 mg (65 mg 325 mg PO DAILY 09/15/24 01/25/25 History iron) tablet triamcinolone acetonide 0.1 % 1 applic topical BID PRN rash #30 01/25/25 01/25/25 Rx topical cream grams Laboratory Tests 01/31/25 02/01/25 21:57 00:27 WBC 10.6 H K/mm3 (4.5-10.0) RBC 4.03 L M/mm3 (4.2-5.4) Hgb 12.2 g/dL (12.0-15.0) Hct 35.5 L % (37.0-47.0) MCV 88.1 fl (80-100) MCH 30.3 pg (26-34) MCHC 34.4 g/dl (32-36) RDW 13.1 % (11.5-14.5) Plt Count 224 k/mm3 (150-375) MPV 11.8 H fl (7.4-10.4) Immature Gran % (Auto) 0.4 % (0-0.5) Neut % (Auto) 71.4 % (45.5-73.1) Lymph % (Auto) 16.8 L % (18.3-44.2) Isabela % (Auto) 6.0 % (2.6-8.5) Eos % (Auto) 5.0 H % (0-4.4) Baso % (Auto) 0.4 % (0.2-1.2) Lymph # (Auto) 1.78 K/mm3 (0.9-3.2) Isabela # (Auto) 0.6 K/mm3 (0.1-0.6) Eos # (Auto) 0.5 H K/mm3 (0-0.3) Baso # (Auto) 0.0 K/mm3 (0.0-0.1) Abs Immat Gran (auto) 0.04 H K/mm3 (0.00-0.031) Absolute Neuts (auto) 7.6 H K/mm3 (1.3-6.7) Absolute Nucleated RBC 0.000 K/mm3 (0.0-0.012) Nucleated RBC % 0.0 % (0.0-0.2) Sodium 137 mmol/L (137-145) Potassium 3.8 mmol/L (3.4-5.0) Chloride 104 mmol/L (98-107) Carbon Dioxide 23 mmol/L (22-30) Anion Gap 10 mmol/L (4-12) BUN 11 mg/dL (7-17) Creatinine 0.63 L mg/dL (0.7-1.0) Estim Creat Clear Calc 128 ml/min Estimated GFR > 60 (59 - ) Glucose 71 mg/dL (65-110) Uric Acid 5.9 mg/dL (2.5-7.5) Calcium 9.5 mg/dL (8.4-10.2) Total Bilirubin 0.6 mg/dL (0.2-1.3) AST 30 U/L (14-36) ALT 14 U/L (6-35) Alkaline Phosphatase 151 H U/L (38-126) Total Protein 7.3 g/dL (6.3-8.2) Albumin 3.9 g/dL (3.5-5.1) Syphilis IgG/IgM Ab Non-reactive (Nonreactive) Blood Type B Negative Antibody Screen Positive Antibody Identification Passive Due to RH Imm Glob Antigen Identification Cancelled CATARINA, IgG Interpret Not Performed CATARINA, Poly Interpret Neg CATARINA, Complement Interp Not Performed Patient hx anesthesia problems: none Family hx anesthesia problems: none Results Review: All pre-operative results and documents have been reviewed as part of the pre-operative evaluation. [facility] Surgical History Surgical History H/O colonoscopy Family History Family History Mother Depression Grandparent Breast cancer Social History Social History Smoking status: Never smoker Substance use: never Lack of Transportation: No Lack of Food: Never True Current Housing: I Have Housing Concerned About Future Housing: No Difficulty Paying Gas/Electric Bills: No Difficulty Paying for Meds: No Currently Unemployed: No Education: High School Diploma/GED Difficulty w/ Childcare or Family Care: No Spiritual care concerns: No Exam Day of Procedure 02/01/25 03:31 Patient weight: normal Heart: regular rate and rhythm Lungs: normal air movement Airway: Mallampati scale class II Neurological: alert and oriented
[2025-02-01] MEDS: LACTATED RINGERS 1,000 ML 125 ML IV CONT (03:33)
[2025-02-01] MEDS: ONDANSETRON INJ 4 MG/2 ML VIAL IV PUSH (04:22)
[2025-02-01 05:05] LABS: Add Urine Microscopic? NO; Appearance Urine Clear (Clear); Glucose Urine UA Negative (Negative); Leukocyte Esterase Ur Negative LEU/UL (Negative); Nitrate Urine Negative (Negative); Specific Grav Ur 1.014 (1.001-1.035)
[2025-02-01 05:18] LABS: Total Protein Urine Random 16 mg/dL; Ur Ttl Prot Creatinine Ratio 0.26 mg/mg (0-0.20)
--- NOTE | 2025-02-01 08:31 | PM.IMHP ---
H&P: HPI History of Present Illness Date/Time: 02/01/25 08:31 Chief Complaint: Leaking of fluid Narrative: 24 y/o G1 at 38 weeks admitted for SROM at 1999. 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 Review of Systems Review of Systems: All systems reviewed & are unremarkable except as noted in HPI and below Constitutional: Constitutional: Reports no additional constitutional complaints and Denies headache(s) Eyes: Eyes: Denies spots in vision ENT: Reports system reviewed and no additional complaints, except as documented and Denies headache(s) Cardiovascular: Cardiovascular: Denies chest pain and Denies dyspnea Respiratory: Respiratory: Denies dyspnea Gastrointestinal: Gastrointestinal: Reports no additional gastrointestinal complaints Genitourinary: Genitourinary: Reports amenorrhea Musculoskeletal: Musculoskeletal: Reports no additional musculoskeletal complaints Integumentary/Breasts: Skin/Breast: Denies breast mass and Denies rash Neurologic: Denies headache(s) Psychiatric: Psychiatric: Reports no additional psychiatric complaints PMFSH Surgical History Surgical History H/O colonoscopy Family History Family History Mother Depression Grandparent Breast cancer Social History Social History Smoking status: Never smoker Substance use: never Lack of Transportation: No Lack of Food: Never True Current Housing: I Have Housing Concerned About Future Housing: No Difficulty Paying Gas/Electric Bills: No Difficulty Paying for Meds: No Currently Unemployed: No Education: High School Diploma/GED Difficulty w/ Childcare or Family Care: No Spiritual care concerns: No Meds Home Medications and Allergies Home Medications ?Medication ?Instructions ?Recorded ?Confirmed ?Type docosahexaenoic acid 200 mg 200 mg PO HS 09/15/24 01/31/25 History capsule ( DHA) ferrous sulfate 325 mg (65 mg 325 mg PO DAILY 09/15/24 01/25/25 History iron) tablet triamcinolone acetonide 0.1 % 1 applic topical BID PRN rash #30 01/25/25 01/25/25 Rx topical cream grams Allergies Allergy/AdvReac Type Severity Reaction Status Date / Time No Known Allergies Allergy Verified 01/31/25 21:53 Vital Signs Vital Signs - 24 hr 01/31/25 21:00 01/31/25 21:35 01/31/25 21:40 Temperature 98.2 F Pulse Rate Respiratory Rate Blood Pressure Pulse Oximetry 100 100 Oxygen Delivery 01/31/25 21:45 01/31/25 22:00 01/31/25 22:43 Temperature 98.2 F Pulse Rate Respiratory Rate 16 Blood Pressure Pulse Oximetry 100 100 Oxygen Delivery 01/31/25 23:00 01/31/25 23:30 02/01/25 00:00 Temperature 98.2 F Pulse Rate 72 85 Respiratory Rate 16 Blood Pressure 130/77 139/81 Pulse Oximetry Oxygen Delivery 02/01/25 00:33 02/01/25 00:45 02/01/25 01:00 Temperature Pulse Rate 74 73 75 Respiratory Rate Blood Pressure 126/72 132/83 126/79 Pulse Oximetry Oxygen Delivery 02/01/25 01:30 02/01/25 03:28 02/01/25 03:33 Temperature 98 F Pulse Rate Respiratory Rate 18 Blood Pressure Pulse Oximetry 100 100 Oxygen Delivery 02/01/25 03:36 02/01/25 03:38 02/01/25 03:40 Temperature Pulse Rate 71 79 94 Respiratory Rate Blood Pressure 129/83 134/85 136/82 Pulse Oximetry 100 Oxygen Delivery 02/01/25 03:43 02/01/25 03:46 02/01/25 03:47 Temperature Pulse Rate 133 H 70 69 Respiratory Rate Blood Pressure 120/93 H 125/77 127/76 Pulse Oximetry 100 Oxygen Delivery 02/01/25 03:48 02/01/25 03:50 02/01/25 03:53 Temperature Pulse Rate 77 Respiratory Rate Blood Pressure 134/70 Pulse Oximetry 100 99 Oxygen Delivery 02/01/25 03:55 02/01/25 03:58 02/01/25 04:00 Temperature Pulse Rate 80 74 Respiratory Rate Blood Pressure 119/85 105/90 Pulse Oximetry 99 Oxygen Delivery 02/01/25 04:03 02/01/25 04:05 02/01/25 04:08 Temperature Pulse Rate 81 Respiratory Rate Blood Pressure 127/73 Pulse Oximetry 99 99 Oxygen Delivery 02/01/25 04:10 02/01/25 04:13 02/01/25 04:15 Temperature Pulse Rate 71 73 Respiratory Rate Blood Pressure 125/74 124/72 Pulse Oximetry 99 Oxygen Delivery 02/01/25 04:18 02/01/25 04:20 02/01/25 04:23 Temperature Pulse Rate 95 Respiratory Rate Blood Pressure 132/87 Pulse Oximetry 100 98 Oxygen Delivery 02/01/25 04:26 02/01/25 04:28 02/01/25 04:30 Temperature Pulse Rate 82 72 Respiratory Rate Blood Pressure 132/68 131/64 Pulse Oximetry 99 Oxygen Delivery 02/01/25 04:33 02/01/25 04:35 02/01/25 04:38 Temperature Pulse Rate 72 Respiratory Rate Blood Pressure 127/64 Pulse Oximetry 100 99 Oxygen Delivery 02/01/25 04:40 02/01/25 04:43 02/01/25 04:45 Temperature Pulse Rate 72 74 Respiratory Rate Blood Pressure 121/63 128/60 Pulse Oximetry 98 Oxygen Delivery 02/01/25 04:48 02/01/25 04:50 02/01/25 04:53 Temperature Pulse Rate 66 Respiratory Rate Blood Pressure 130/78 Pulse Oximetry 99 100 Oxygen Delivery 02/01/25 04:55 02/01/25 04:58 02/01/25 05:00 Temperature Pulse Rate 147 H 74 Respiratory Rate Blood Pressure 113/73 119/84 Pulse Oximetry 97 Oxygen Delivery 02/01/25 05:03 02/01/25 05:05 02/01/25 05:08 Temperature Pulse Rate 75 Respiratory Rate Blood Pressure 106/48 L Pulse Oximetry 99 98 Oxygen Delivery 02/01/25 05:10 02/01/25 05:13 02/01/25 05:15 Temperature Pulse Rate 68 69 Respiratory Rate Blood Pressure 117/75 117/72 Pulse Oximetry 98 Oxygen Delivery 02/01/25 05:18 02/01/25 05:20 02/01/25 05:23 Temperature Pulse Rate 76 Respiratory Rate Blood Pressure 110/70 Pulse Oximetry 98 99 Oxygen Delivery 02/01/25 05:25 02/01/25 05:28 02/01/25 05:30 Temperature 98 F Pulse Rate 67 64 Respiratory Rate 20 Blood Pressure 114/75 118/73 Pulse Oximetry 98 Oxygen Delivery 02/01/25 05:33 02/01/25 05:35 02/01/25 05:38 Temperature Pulse Rate 68 Respiratory Rate Blood Pressure 110/68 Pulse Oximetry 98 98 Oxygen Delivery 02/01/25 05:43 02/01/25 05:45 02/01/25 05:48 Temperature Pulse Rate 69 Respiratory Rate Blood Pressure 106/54 L Pulse Oximetry 100 99 Oxygen Delivery 02/01/25 05:53 02/01/25 05:58 02/01/25 06:00 Temperature Pulse Rate 74 Respiratory Rate Blood Pressure 115/62 Pulse Oximetry 98 100 Oxygen Delivery 02/01/25 06:03 02/01/25 06:08 02/01/25 06:13 Temperature Pulse Rate Respiratory Rate Blood Pressure Pulse Oximetry 100 100 100 Oxygen Delivery 02/01/25 06:15 02/01/25 06:18 02/01/25 06:23 Temperature Pulse Rate 63 Respiratory Rate Blood Pressure 110/73 Pulse Oximetry 100 100 Oxygen Delivery 02/01/25 06:28 02/01/25 06:30 02/01/25 06:33 Temperature Pulse Rate 87 Respiratory Rate Blood Pressure 65/37 L Pulse Oximetry 100 100 Oxygen Delivery 02/01/25 06:38 02/01/25 06:43 02/01/25 06:45 Temperature Pulse Rate 71 Respiratory Rate Blood Pressure 112/55 L Pulse Oximetry 100 100 Oxygen Delivery 02/01/25 06:48 02/01/25 06:53 02/01/25 06:58 Temperature Pulse Rate Respiratory Rate Blood Pressure Pulse Oximetry 100 100 99 Oxygen Delivery 02/01/25 07:00 02/01/25 07:03 02/01/25 07:08 Temperature Pulse Rate 70 Respiratory Rate Blood Pressure 128/63 Pulse Oximetry 100 100 Oxygen Delivery 02/01/25 07:13 02/01/25 07:15 02/01/25 07:16 Temperature Pulse Rate 65 Respiratory Rate Blood Pressure 121/75 Pulse Oximetry 100 Oxygen Delivery Room Air 02/01/25 07:18 02/01/25 07:23 02/01/25 07:28 Temperature Pulse Rate Respiratory Rate Blood Pressure Pulse Oximetry 100 100 100 Oxygen Delivery 02/01/25 07:30 02/01/25 07:33 02/01/25 07:38 Temperature Pulse Rate 68 Respiratory Rate Blood Pressure 125/82 Pulse Oximetry 98 98 Oxygen Delivery 02/01/25 07:43 02/01/25 07:45 02/01/25 07:48 Temperature Pulse Rate 76 Respiratory Rate Blood Pressure 131/79 Pulse Oximetry 98 98 Oxygen Delivery 02/01/25 07:53 02/01/25 07:58 02/01/25 08:00 Temperature Pulse Rate 68 Respiratory Rate Blood Pressure 122/73 Pulse Oximetry 97 98 Oxygen Delivery 02/01/25 08:03 02/01/25 08:08 02/01/25 08:13 Temperature Pulse Rate Respiratory Rate Blood Pressure Pulse Oximetry 98 98 98 Oxygen Delivery 02/01/25 08:15 02/01/25 08:18 02/01/25 08:23 Temperature Pulse Rate 74 Respiratory Rate Blood Pressure 126/73 Pulse Oximetry 99 97 Oxygen Delivery 02/01/25 08:28 02/01/25 08:30 Temperature Pulse Rate 81 Respiratory Rate Blood Pressure 130/74 Pulse Oximetry 100 Oxygen Delivery Exam Const: General: no acute distress Eyes: General: appearance normal, both eyes and all related structures Resp: Effort & Inspection: normal respiratory effort Cardio: Rate: regular rate GI: Other: Gravid no fundal tenderness no right upper quadrant pain Skin: General skin exam: no rashes or lesions noted Neuro: Cognition (Neuro): normal cognition Extrem: General: normal to inspection Psych: Mental Status: mental status grossly normal H&P: Results Labs Labs: Short CBC 01/31/25 Range/Units 21:57 WBC 10.6 H (4.5-10.0) K/mm3 Hgb 12.2 (12.0-15.0) g/dL Hct 35.5 L (37.0-47.0) % Plt Count 224 (150-375) k/mm3 BMP 02/01/25 00:27 Sodium 137 Potassium 3.8 Chloride 104 Carbon Dioxide 23 BUN 11 Creatinine 0.63 L Glucose 71 Calcium 9.5 Liver Function 02/01/25 Range/Units 00:27 Total Bilirubin 0.6 (0.2-1.3) mg/dL AST 30 (14-36) U/L ALT 14 (6-35) U/L Alkaline Phosphatase 151 H (38-126) U/L Albumin 3.9 (3.5-5.1) g/dL Urine 02/01/25 Range/Units 04:00 Urine Color Yellow (Yellow) Urine Appearance Clear (Clear) Urine pH 7.0 (5.0-9.0) Ur Specific [place] 1.014 (1.001-1.035) Urine Protein Negative (Negative) mg/dL Urine Glucose (UA) Negative (Negative) mg/dL Assessment and Plan Assessment and plan (1) Spontaneous rupture of membranes: Status: Acute (2) GBS carrier: 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
[2025-02-01] MEDS: OXYTOCIN 30 UNITS/NS 500 ML 30 UNITS/500 ML BAG 999 UNITS IV CONT (12:03)
[2025-02-01] MEDS: OXYTOCIN 30 UNITS/NS 500 ML 30 UNITS/500 ML BAG 125 UNITS IV CONT (12:30)
--- NOTE | 2025-02-01 15:54 | PC.NURSE ---
Patient transferred to post room #279 via wheelchair. Support person present. Oriented to unit, room, information board, rooming in, admission packet and security measures. Patient verbalizes understanding.
--- NOTE | 2025-02-01 16:03 | P.PCNOB_ITS ---
OB - Vaginal Delivery Note Procedure Delivery date: 02/02/25 Events: Positive Group B Strep (GBS) Delivery augmentation: Pitocin Delivery monitor: External FHT and Internal Uterine Route of delivery: Episiotomy description: None Laceration Description: Vaginal (small at 7 o clock) Delivery repair: vicryl (2.0 vicryl) Specimen: No Quantitative Blood Loss (ml): 150 Anesthesia type: Epidural Disposition: Floor Complications: No immediate complications Narrative: She was admitted for SROM. She had Ampicillin started for GBS carrier and had Pitocin augmentation. She progressed to complete and had an uncomplicated vaginal delivery of male infant. vigorously crying and placed on maternal abdomen. Pitocin started. Placenta delivered spontaneously. She sustained a small laceration on right vaginal wall near introitus that required one figure of eight stitch of 0 vicryl for hemostasis. Hemostasis noted. [place] Baby Date of : [birth year] Time of : 11:58 Gestational Age by Date: 38 gender: Male Weight (pounds): 7 Weight (ounces): 6 presentation: vertex position: Left Occiput Anterior (compound left hand presentation) Placenta delivery description: Spontaneous Cord Vessel Description: 3 Vessels, Nuchal Cord, Loose and Delayed Cord Clamping score one minute: 8 score five minutes: 9
--- NOTE | 2025-02-01 16:03 | PM.IMHP ---
H&P: HPI History of Present Illness Date/Time: 02/01/25 16:03 Chief Complaint: Spontaneous rupture of membranes Narrative: She presented to [facility] at approximately 1999. course uncomplicated. Review of Systems Review of Systems: All systems reviewed & are unremarkable except as noted in HPI and below Constitutional: Constitutional: Reports no additional constitutional complaints and Denies headache(s) Eyes: Eyes: Denies spots in vision ENT: Reports system reviewed and no additional complaints, except as documented and Denies headache(s) Cardiovascular: Cardiovascular: Denies chest pain and Denies dyspnea Respiratory: Respiratory: Denies dyspnea Gastrointestinal: Gastrointestinal: Reports no additional gastrointestinal complaints Genitourinary: Genitourinary: Reports amenorrhea Musculoskeletal: Musculoskeletal: Reports no additional musculoskeletal complaints Integumentary/Breasts: Skin/Breast: Denies breast mass and Denies rash Neurologic: Denies headache(s) Psychiatric: Psychiatric: Reports no additional psychiatric complaints PMFSH Surgical History Surgical History H/O colonoscopy Family History Family History Mother Depression Grandparent Breast cancer Social History Social History Smoking status: Never smoker Substance use: never Lack of Transportation: No Lack of Food: Never True Current Housing: I Have Housing Concerned About Future Housing: No Difficulty Paying Gas/Electric Bills: No Difficulty Paying for Meds: No Currently Unemployed: No Education: High School Diploma/GED Difficulty w/ Childcare or Family Care: No Spiritual care concerns: No Meds Home Medications and Allergies Home Medications ?Medication ?Instructions ?Recorded ?Confirmed ?Type docosahexaenoic acid 200 mg 200 mg PO HS 09/15/24 01/31/25 History capsule ( DHA) ferrous sulfate 325 mg (65 mg 325 mg PO DAILY 09/15/24 01/25/25 History iron) tablet triamcinolone acetonide 0.1 % 1 applic topical BID PRN rash #30 01/25/25 01/25/25 Rx topical cream grams Allergies Allergy/AdvReac Type Severity Reaction Status Date / Time No Known Allergies Allergy Verified 01/31/25 21:53 Vital Signs Vital Signs - 24 hr 01/31/25 21:00 01/31/25 21:35 01/31/25 21:40 Temperature 98.2 F Pulse Rate Respiratory Rate Blood Pressure Pulse Oximetry 100 100 Oxygen Delivery 01/31/25 21:45 01/31/25 22:00 01/31/25 22:43 Temperature 98.2 F Pulse Rate Respiratory Rate 16 Blood Pressure Pulse Oximetry 100 100 Oxygen Delivery 01/31/25 23:00 01/31/25 23:30 02/01/25 00:00 Temperature 98.2 F Pulse Rate 72 85 Respiratory Rate 16 Blood Pressure 130/77 139/81 Pulse Oximetry Oxygen Delivery 02/01/25 00:33 02/01/25 00:45 02/01/25 01:00 Temperature Pulse Rate 74 73 75 Respiratory Rate Blood Pressure 126/72 132/83 126/79 Pulse Oximetry Oxygen Delivery 02/01/25 01:30 02/01/25 03:28 02/01/25 03:33 Temperature 98 F Pulse Rate Respiratory Rate 18 Blood Pressure Pulse Oximetry 100 100 Oxygen Delivery 02/01/25 03:36 02/01/25 03:38 02/01/25 03:40 Temperature Pulse Rate 71 79 94 Respiratory Rate Blood Pressure 129/83 134/85 136/82 Pulse Oximetry 100 Oxygen Delivery 02/01/25 03:43 02/01/25 03:46 02/01/25 03:47 Temperature Pulse Rate 133 H 70 69 Respiratory Rate Blood Pressure 120/93 H 125/77 127/76 Pulse Oximetry 100 Oxygen Delivery 02/01/25 03:48 02/01/25 03:50 02/01/25 03:53 Temperature Pulse Rate 77 Respiratory Rate Blood Pressure 134/70 Pulse Oximetry 100 99 Oxygen Delivery 02/01/25 03:55 02/01/25 03:58 02/01/25 04:00 Temperature Pulse Rate 80 74 Respiratory Rate Blood Pressure 119/85 105/90 Pulse Oximetry 99 Oxygen Delivery 02/01/25 04:03 02/01/25 04:05 02/01/25 04:08 Temperature Pulse Rate 81 Respiratory Rate Blood Pressure 127/73 Pulse Oximetry 99 99 Oxygen Delivery 02/01/25 04:10 02/01/25 04:13 02/01/25 04:15 Temperature Pulse Rate 71 73 Respiratory Rate Blood Pressure 125/74 124/72 Pulse Oximetry 99 Oxygen Delivery 02/01/25 04:18 02/01/25 04:20 02/01/25 04:23 Temperature Pulse Rate 95 Respiratory Rate Blood Pressure 132/87 Pulse Oximetry 100 98 Oxygen Delivery 02/01/25 04:26 02/01/25 04:28 02/01/25 04:30 Temperature Pulse Rate 82 72 Respiratory Rate Blood Pressure 132/68 131/64 Pulse Oximetry 99 Oxygen Delivery 02/01/25 04:33 02/01/25 04:35 02/01/25 04:38 Temperature Pulse Rate 72 Respiratory Rate Blood Pressure 127/64 Pulse Oximetry 100 99 Oxygen Delivery 02/01/25 04:40 02/01/25 04:43 02/01/25 04:45 Temperature Pulse Rate 72 74 Respiratory Rate Blood Pressure 121/63 128/60 Pulse Oximetry 98 Oxygen Delivery 02/01/25 04:48 02/01/25 04:50 02/01/25 04:53 Temperature Pulse Rate 66 Respiratory Rate Blood Pressure 130/78 Pulse Oximetry 99 100 Oxygen Delivery 02/01/25 04:55 02/01/25 04:58 02/01/25 05:00 Temperature Pulse Rate 147 H 74 Respiratory Rate Blood Pressure 113/73 119/84 Pulse Oximetry 97 Oxygen Delivery 02/01/25 05:03 02/01/25 05:05 02/01/25 05:08 Temperature Pulse Rate 75 Respiratory Rate Blood Pressure 106/48 L Pulse Oximetry 99 98 Oxygen Delivery 02/01/25 05:10 02/01/25 05:13 02/01/25 05:15 Temperature Pulse Rate 68 69 Respiratory Rate Blood Pressure 117/75 117/72 Pulse Oximetry 98 Oxygen Delivery 02/01/25 05:18 02/01/25 05:20 02/01/25 05:23 Temperature Pulse Rate 76 Respiratory Rate Blood Pressure 110/70 Pulse Oximetry 98 99 Oxygen Delivery 02/01/25 05:25 02/01/25 05:28 02/01/25 05:30 Temperature 98 F Pulse Rate 67 64 Respiratory Rate 20 Blood Pressure 114/75 118/73 Pulse Oximetry 98 Oxygen Delivery 02/01/25 05:33 02/01/25 05:35 02/01/25 05:38 Temperature Pulse Rate 68 Respiratory Rate Blood Pressure 110/68 Pulse Oximetry 98 98 Oxygen Delivery 02/01/25 05:43 02/01/25 05:45 02/01/25 05:48 Temperature Pulse Rate 69 Respiratory Rate Blood Pressure 106/54 L Pulse Oximetry 100 99 Oxygen Delivery 02/01/25 05:53 02/01/25 05:58 02/01/25 06:00 Temperature Pulse Rate 74 Respiratory Rate Blood Pressure 115/62 Pulse Oximetry 98 100 Oxygen Delivery 02/01/25 06:03 02/01/25 06:08 02/01/25 06:13 Temperature Pulse Rate Respiratory Rate Blood Pressure Pulse Oximetry 100 100 100 Oxygen Delivery 02/01/25 06:15 02/01/25 06:18 02/01/25 06:23 Temperature Pulse Rate 63 Respiratory Rate Blood Pressure 110/73 Pulse Oximetry 100 100 Oxygen Delivery 02/01/25 06:28 02/01/25 06:30 02/01/25 06:33 Temperature Pulse Rate 87 Respiratory Rate Blood Pressure 65/37 L Pulse Oximetry 100 100 Oxygen Delivery 02/01/25 06:38 02/01/25 06:43 02/01/25 06:45 Temperature Pulse Rate 71 Respiratory Rate Blood Pressure 112/55 L Pulse Oximetry 100 100 Oxygen Delivery 02/01/25 06:48 02/01/25 06:53 02/01/25 06:58 Temperature Pulse Rate Respiratory Rate Blood Pressure Pulse Oximetry 100 100 99 Oxygen Delivery 02/01/25 07:00 02/01/25 07:03 02/01/25 07:08 Temperature Pulse Rate 70 Respiratory Rate Blood Pressure 128/63 Pulse Oximetry 100 100 Oxygen Delivery 02/01/25 07:13 02/01/25 07:15 02/01/25 07:16 Temperature Pulse Rate 65 Respiratory Rate Blood Pressure 121/75 Pulse Oximetry 100 Oxygen Delivery Room Air 02/01/25 07:18 02/01/25 07:23 02/01/25 07:28 Temperature Pulse Rate Respiratory Rate Blood Pressure Pulse Oximetry 100 100 100 Oxygen Delivery 02/01/25 07:30 02/01/25 07:33 02/01/25 07:38 Temperature Pulse Rate 68 Respiratory Rate Blood Pressure 125/82 Pulse Oximetry 98 98 Oxygen Delivery 02/01/25 07:43 02/01/25 07:45 02/01/25 07:48 Temperature Pulse Rate 76 Respiratory Rate Blood Pressure 131/79 Pulse Oximetry 98 98 Oxygen Delivery 02/01/25 07:53 02/01/25 07:58 02/01/25 08:00 Temperature Pulse Rate 68 Respiratory Rate Blood Pressure 122/73 Pulse Oximetry 97 98 Oxygen Delivery 02/01/25 08:03 02/01/25 08:08 02/01/25 08:13 Temperature Pulse Rate Respiratory Rate Blood Pressure Pulse Oximetry 98 98 98 Oxygen Delivery 02/01/25 08:15 02/01/25 08:18 02/01/25 08:23 Temperature Pulse Rate 74 Respiratory Rate Blood Pressure 126/73 Pulse Oximetry 99 97 Oxygen Delivery 02/01/25 08:28 02/01/25 08:30 02/01/25 08:33 Temperature Pulse Rate 81 Respiratory Rate Blood Pressure 130/74 Pulse Oximetry 100 98 Oxygen Delivery 02/01/25 08:38 02/01/25 08:43 02/01/25 08:45 Temperature Pulse Rate 66 Respiratory Rate Blood Pressure 121/76 Pulse Oximetry 98 98 Oxygen Delivery 02/01/25 08:48 02/01/25 08:53 02/01/25 08:58 Temperature Pulse Rate Respiratory Rate Blood Pressure Pulse Oximetry 98 98 98 Oxygen Delivery 02/01/25 09:00 02/01/25 09:03 02/01/25 09:05 Temperature 97.9 F Pulse Rate 73 Respiratory Rate 16 Blood Pressure 119/84 Pulse Oximetry 99 Oxygen Delivery 02/01/25 09:08 02/01/25 09:13 02/01/25 09:15 Temperature Pulse Rate 75 Respiratory Rate Blood Pressure 128/80 Pulse Oximetry 98 98 Oxygen Delivery 02/01/25 09:18 02/01/25 09:23 02/01/25 09:28 Temperature Pulse Rate Respiratory Rate Blood Pressure Pulse Oximetry 98 98 98 Oxygen Delivery 02/01/25 09:30 02/01/25 09:33 02/01/25 09:34 Temperature Pulse Rate 69 Respiratory Rate Blood Pressure 123/80 Pulse Oximetry 98 99 Oxygen Delivery 02/01/25 09:36 02/01/25 09:45 02/01/25 09:47 Temperature Pulse Rate 87 Respiratory Rate Blood Pressure 132/93 H Pulse Oximetry 99 100 Oxygen Delivery 02/01/25 09:52 02/01/25 09:57 02/01/25 10:00 Temperature Pulse Rate 85 Respiratory Rate Blood Pressure 129/107 H Pulse Oximetry 100 100 Oxygen Delivery 02/01/25 10:02 02/01/25 10:07 02/01/25 10:12 Temperature Pulse Rate Respiratory Rate Blood Pressure Pulse Oximetry 100 100 99 Oxygen Delivery 02/01/25 10:15 02/01/25 10:17 02/01/25 10:21 Temperature Pulse Rate 81 Respiratory Rate Blood Pressure 133/81 Pulse Oximetry 100 100 Oxygen Delivery 02/01/25 10:21 02/01/25 10:21 02/01/25 10:26 Temperature Pulse Rate Respiratory Rate Blood Pressure Pulse Oximetry 100 100 99 Oxygen Delivery 02/01/25 10:31 02/01/25 10:36 02/01/25 10:45 Temperature Pulse Rate Respiratory Rate Blood Pressure Pulse Oximetry 100 100 91 Oxygen Delivery 02/01/25 10:50 02/01/25 10:51 02/01/25 10:56 Temperature Pulse Rate Respiratory Rate Blood Pressure Pulse Oximetry 100 99 100 Oxygen Delivery 02/01/25 11:01 02/01/25 11:06 02/01/25 11:11 Temperature Pulse Rate 120 H Respiratory Rate Blood Pressure 90/43 L Pulse Oximetry 100 100 100 Oxygen Delivery 02/01/25 11:16 02/01/25 11:21 02/01/25 11:26 Temperature Pulse Rate Respiratory Rate Blood Pressure Pulse Oximetry 100 100 100 Oxygen Delivery 02/01/25 11:30 02/01/25 11:31 02/01/25 11:49 Temperature Pulse Rate 72 Respiratory Rate Blood Pressure 125/69 Pulse Oximetry 100 100 Oxygen Delivery 02/01/25 11:54 02/01/25 11:59 02/01/25 12:00 Temperature Pulse Rate 125 H Respiratory Rate Blood Pressure 135/88 Pulse Oximetry 100 100 Oxygen Delivery 02/01/25 12:04 02/01/25 12:09 02/01/25 12:11 Temperature Pulse Rate Respiratory Rate Blood Pressure Pulse Oximetry 99 100 73 L Oxygen Delivery 02/01/25 12:16 02/01/25 12:23 02/01/25 12:28 Temperature Pulse Rate Respiratory Rate Blood Pressure Pulse Oximetry 100 79 L 91 Oxygen Delivery 02/01/25 12:30 02/01/25 12:31 02/01/25 12:31 Temperature Pulse Rate 76 Respiratory Rate Blood Pressure 127/68 Pulse Oximetry 97 99 Oxygen Delivery 02/01/25 12:32 02/01/25 12:33 02/01/25 12:38 Temperature Pulse Rate 92 Respiratory Rate Blood Pressure 119/48 L Pulse Oximetry 89 L 96 100 Oxygen Delivery 02/01/25 12:43 02/01/25 12:45 02/01/25 12:48 Temperature Pulse Rate 121 H Respiratory Rate Blood Pressure 131/90 Pulse Oximetry 100 100 Oxygen Delivery 02/01/25 12:53 02/01/25 12:58 02/01/25 13:00 Temperature Pulse Rate 83 Respiratory Rate Blood Pressure 124/72 Pulse Oximetry 100 100 Oxygen Delivery 02/01/25 13:03 02/01/25 13:08 02/01/25 13:13 Temperature Pulse Rate Respiratory Rate Blood Pressure Pulse Oximetry 100 100 100 Oxygen Delivery 02/01/25 13:15 02/01/25 13:18 02/01/25 13:23 Temperature Pulse Rate 79 Respiratory Rate Blood Pressure 143/75 H Pulse Oximetry 100 100 Oxygen Delivery 02/01/25 13:28 02/01/25 13:30 02/01/25 13:33 Temperature Pulse Rate 89 Respiratory Rate Blood Pressure 124/69 Pulse Oximetry 100 100 Oxygen Delivery 02/01/25 13:38 02/01/25 13:43 02/01/25 13:45 Temperature Pulse Rate 82 Respiratory Rate Blood Pressure 131/76 Pulse Oximetry 100 100 Oxygen Delivery 02/01/25 13:48 02/01/25 13:49 02/01/25 13:54 Temperature Pulse Rate Respiratory Rate Blood Pressure Pulse Oximetry 100 99 99 Oxygen Delivery 02/01/25 13:59 02/01/25 14:00 02/01/25 14:01 Temperature Pulse Rate 157 H Respiratory Rate Blood Pressure 128/106 H Pulse Oximetry 99 85 L Oxygen Delivery 02/01/25 14:01 02/01/25 14:15 02/01/25 14:30 Temperature Pulse Rate 78 65 Respiratory Rate Blood Pressure 125/76 125/74 Pulse Oximetry 84 L Oxygen Delivery 02/01/25 14:45 Temperature Pulse Rate 67 Respiratory Rate Blood Pressure 121/72 Pulse Oximetry Oxygen Delivery Exam Const: General: no acute distress Eyes: General: appearance normal, both eyes and all related structures Resp: Effort & Inspection: normal respiratory effort Cardio: Rate: regular rate GI: Other: Gravid no fundal tenderness no right upper quadrant pain Skin: General skin exam: no rashes or lesions noted Neuro: Cognition (Neuro): normal cognition Extrem: General: normal to inspection Psych: Mental Status: mental status grossly normal H&P: Results Labs Labs: Short CBC 01/31/25 Range/Units 21:57 WBC 10.6 H (4.5-10.0) K/mm3 Hgb 12.2 (12.0-15.0) g/dL Hct 35.5 L (37.0-47.0) % Plt Count 224 (150-375) k/mm3 BMP 02/01/25 00:27 Sodium 137 Potassium 3.8 Chloride 104 Carbon Dioxide 23 BUN 11 Creatinine 0.63 L Glucose 71 Calcium 9.5 Liver Function 02/01/25 Range/Units 00:27 Total Bilirubin 0.6 (0.2-1.3) mg/dL AST 30 (14-36) U/L ALT 14 (6-35) U/L Alkaline Phosphatase 151 H (38-126) U/L Albumin 3.9 (3.5-5.1) g/dL Urine 02/01/25 Range/Units 04:00 Urine Color Yellow (Yellow) Urine Appearance Clear (Clear) Urine pH 7.0 (5.0-9.0) Ur Specific [place] 1.014 (1.001-1.035) Urine Protein Negative (Negative) mg/dL Urine Glucose (UA) Negative (Negative) mg/dL Assessment and Plan Assessment and plan (1) Spontaneous rupture of membranes: Status: Acute Assessment and Plan: 1. Admit 2. Pitocin augmentation if not progressing.
--- NOTE | 2025-02-01 16:35 | PC.NURSE ---
Patient requests assistance. Baby latched and nursed after delivery for an hour. Mom initially wanted to pump and bottle feed, but decided she wanted to try once baby was born. Baby is skin to skin with mom now and is very sleepy. She has tried to latch to both breasts without success. We moved him away from mom and stimulated him to wake. He stirred and cried a little but gave no feeding cues. We placed him back at breast and he opened his mouth once but then fell into a deep sleep and would not give any effort to latch. Discussed with mom how sleepy babies are in the first day after delivery. She is encouraged to try again in a half to one hour or if she sees any feeding cues sooner. Patient knows that if we don't have a feeding in 6 hours we will check a blood sugar to ensure he is maintaining a good level. She will call out for assistance as needed. Primary RN updated.
[2025-02-02 04:40] LABS: Hematocrit 26.4 % (37.0-47.0); Hemoglobin 9.0 g/dL (12.0-15.0)
[2025-02-02 07:30] VITALS: BP 130/81; PULSE 80; RESP 16; TEMP 36.9; O2SAT 99
[2025-02-02] MEDS: DOCUSATE SODIUM 100 MG CAPSULE PO ×2 (08:25→17:15)
[2025-02-02] MEDS: MULTIVIT/MIN/PREN/FOL AC/IRON TABLET 1 TAB PO (08:26)
--- NOTE | 2025-02-02 08:45 | WPDANLDPN2 ---
Anes-Prog Note L&D Date/Time: 02/02/25 08:45 Comfortable throughout: labor and delivery Neuraxial method: epidural Epidural/Spinal procedure site: clean & non-tender Neuro status: Neuro function grossly intact. Cardiovascular status: normal Respiratory status: normal Airway patency: baseline Mental status: baseline Post-Op hydration status: normal Vital Signs: Last Vital Signs Temp 37.0 C 02/01/25 23:50 Pulse 90 02/01/25 23:50 Resp 18 02/01/25 23:50 BP 133/69 02/01/25 23:50 Pulse Ox 98 02/01/25 23:50 O2 Del Method Room Air 02/01/25 07:16 Pain score (VAS): 0 Post-procedural complaints: none Patient feedback: Patient satisfied with anesthetic care.
[2025-02-02 09:00] VITALS: PULSE 89; RESP 16; O2SAT 98
--- NOTE | 2025-02-02 09:10 | PC.NURSE ---
Consulted with patient to assess needs related to . Discussed with mother her successes, concerns and any questions she has. A nipple shield was provided to mother due to being unable to maintain latch through the night, given by night RN. We reviewed good handwashing, cleaning the nipple shield and the appropriate way to apply and use as a tool. Discussed with mom the nipple shield precautions, possible complications associated with the risks and benefits. Reviewed practicing with a nipple shield, then without and how to protect the milk supply and production. We discussed using her breast pump if she continued to use the nipple shield, her is bringing her breast pump from home. Mom voiced understanding of the importance of hand expression, nipple stimulation and initiating a pumping schedule if continues to nurse with the shield. We reviewed working with the infant, supporting breast, protecting her nipples with an optimal deep latch, good positioning, and good hand washing. Encouraged understanding the benefits of skin to skin, responding to feeding cues, frequencies of feeding 8-12 times in 24 hours (approximately 2-3 hours), duration of feedings, milk production, intake/output feeding sheet and signs of adequate intake encouraging swallowing at the breast. Reviewed positioning and alignment, supporting breast, off-centered (asymmetrical latch) and leading with the chin with big, open, wide gape. latched optimally to the [right] breast in [football] position. Education given to the mother of how to visualize the suckling (with good rocking jaw motion) swallows (dropping of the lower jaw) and how to listen for drinking at the breast (the ka sound). The infant was [able] to maintain latch without discomfort to mother and colostrum could be seen in the shield, mother also able to feel tugging and pulling from through the shield. Nipple care reviewed with optimal latch, good positioning and using clean hands when touching her breast. Resources used to facilitate learning were used from the [visual handouts/ tool/mom and baby guide]. Mother voiced understanding of the education shared, to call for assistance if the does not latch or if there is discomfort with . Reported to the Primary RN.
--- NOTE | 2025-02-02 11:16 | P.DS_ITS ---
DS: Admitting Diagnosis Discharge Date 02/03/25 Admitting Diagnosis Spontaneous rupture of membranes DS: Discharge Diagnosis Discharge Diagnosis (1) (normal spontaneous vaginal delivery): Code(s): O80 - Encounter for full-term uncomplicated delivery Status: Acute OB - DS: Summary Hospital Course Hospital Course: She was admitted for rupture of membranes. She had an uncomplicated vaginal delivery. She did well . She was discharged to home on day 2. OB Procedures : Ultrasound OB Procedures Intrapartum: Spontaneous Vag Delivery OB Procedures: : None Peripartum Data Infant Delivery Method: Natural Vaginal Laceration Description: Vaginal (small at 7 o clock) Episiotomy description: None complications: none Status at Discharge Functional status at discharge: independent ambulation Time Spent with Patient Time attestation: Total time spent providing and/or coordinating discharge services: Exam Const: General: cooperative Orientation/consciousness: oriented to person, oriented to place and oriented to time HENMT: Face/Nose/Sinus: Normal external nose present Eyes: General: appearance normal, both eyes and all related structures Resp: Effort & Inspection: normal respiratory effort GI: Inspection: normal to inspection Skin: General skin exam: normal color Neuro: General: oriented to person, oriented to place and oriented to time Extrem: General: normal to inspection and no calf tenderness Psych: Appearance: grossly normal Mental Status: mental status grossly normal DS: Data Data Completed and Pending Labs on day of discharge: Labs from last 24 hours 02/02/25 02/02/25 03:43 03:40 Hgb 9.0 L D Hct 26.4 L Blood Type B Negative Antibody Screen Negative Screen Negative Baby's Blood Type B pos Baby's CATARINA Negative Doses of RhIg Required 1 Discharge Plan Discharge Attending physician on discharge: Kody Deluca Consulting providers: Kody Deluca; Rachell Mcdermott; Kathy Bay Discharging Clinician: Tor Victoria Patient Disposition: Home Activity: pelvic rest Diet: regular Discharge Instructions: Education: Mom and Baby Guide Given to: Mother Follow-Up: Call your delivering provider's office for an appointment to be seen in: 2 Weeks Mom and baby should come to the [facility] for the follow-up appointment. Appointment Date/Time: February 05, 2025 at 12:30 pm What to expect at your follow-up visit: Blood Pressure Check Physical Assessment Call [phone] if you are unable to keep your appointment time. BREAST CARE: * Wear a snug supportive bra. * For engorgement discomfort: Breast Feeding: * Apply warm moist washcloths * Express milk as needed to relieve engorgement * Wear loose clothing Bottle Feeding: * May apply ice packs * For sore nipples: * Identify correct latch-on * Apply warm moist washcloths before and after nursing * Air dry nipples after nursing * May apply Lansinoh cream to nipples EPISIOTOMY/PERINEAL CARE: * Until bleeding stops, use your topher bottle after urinating * Change your pad frequently throughout the day * You may take sitz baths several times a day (fill your bathtub with warm water and soak for 20 minutes.) Do NOT bathe in the water * No tub baths until seen by your physician - You may shower ACTIVITY: * Rest as much as possible. * Do not exercise or lift anything heavier than your baby (such as laundry or other children.) * Avoid stairs or driving as much as possible. * Do not put anything into the vagina. No douching, tampons, or sexual activity until seen by physician. NOTIFY PHYSICIAN IF YOU HAVE ANY QUESTIONS OR IF ANY OF THE FOLLOWING SYMPTOMS OCCUR: * If your episiotomy or incision becomes red, swollen, or more painful than what you have experienced in the hospital. * If your vaginal bleeding becomes foul smelling. * If your vaginal bleeding becomes more heavy than a period or if your bleeding changes from pink to bright red. However, you may pass an occasional walnut- sized clot once or twice for the first week . * If you experience a sharp, shooting pain in you calves. * If you discover a hard, reddened area on your breast or if you experience flu- like symptoms. DIET: * Eat regular, well-balanced meals. * Drink plenty of fluids daily. If , drink to thirst. Call or return if temperature above 100.4? F, increased abdominal pain, increased vaginal bleeding or any new problems. Patient Language: Hebrew Stand Alone Forms: General Discharge Information Follow-up/Referrals: Kody Deluca MD [Physician, [employer]] - 6 Weeks Discharge Medications: Continued DHA 200 mg capsule 200 mg PO HS ferrous sulfate 325 mg (65 mg iron) tablet 325 mg PO DAILY triamcinolone acetonide 0.1 % cream 1 applic topical BID PRN (Reason: rash) Qty: 30 0RF Date of admission: 01/31/25 20:51 Primary Care Provider: Pop Parham Admitting Provider: Justo Bae Attending physician on admission: Tor Victoria Condition: Stable
[2025-02-02 12:08] VITALS: BP 125/70; PULSE 89; RESP 16; TEMP 37.4; O2SAT 98
[2025-02-02] MEDS: RHO(D) IMMUNE GLOBULIN 300 MCG/2 ML SYRINGE IM (12:58)
[2025-02-02 18:40] VITALS: BP 131/82; PULSE 74; RESP 18; TEMP 36.8; O2SAT 100
--- NOTE | 2025-02-03 02:38 | P.PNOB_ITS ---
OB - PN: Subj Subjective Date/time seen: 02/02/25 1115 Patient comments: pain well controlled, tolerating diet and other (Decreasing lochia.) baby status: doing well OB - PN: Obj Data Labs 02/02/25 03:40 02/01/25 00:27 Labs: Laboratory Results - last 24 hr 02/02/25 02/02/25 03:40 03:43 Hgb 9.0 L D Hct 26.4 L Blood Type B Negative Antibody Screen Negative Screen Negative Baby's Blood Type B pos Baby's CATAR[place] Negative Doses of RhIg Required 1 OB - PN A/P Plan day: 1 Plan: routine care Comments: Patient doing well. Time Spent With Patient Time: Total time spent is greater than 50% in coordination of care (as documented) at patient's floor/unit and/or counseling patient: Exam 2 Psych: Affect: normal affect Other: Abd: fundus firm below umbilicus, nontender Perineum: healing Ext: nontender
[2025-02-03 07:25] VITALS: BP 131/89; PULSE 77; RESP 18; TEMP 36.5; O2SAT 100
--- NOTE | 2025-02-03 08:20 | PC.NURSE ---
Consulted with mother concerning needs and she shared her ability to independently latch infant optimally, she did complain of left nipple soreness and was given lanolin and hydrogel cooling pads. Mother is feeding appropriately for growth of infant and understands stimulating infant to eat if needed, she is no longer using the nipple shield and is using the breast pump as needed. has had appropriate feedings in the last 24 hours meets the outcomes for weight, output, blood sugar and jaundice at this time. Reinforced understanding of milk production, transition of milk, signs of adequate intake, transition of stool, prevention/relief of engorgement, plugged ducts, mastitis, responsive watching for feeding cues, the different methods of stimulating to breastfeed 1-3 hours after the start of the last feeding, community resources, and when to call a provider using the resource of the feeding sheet along with the mom and baby guide. Mother voiced understanding of the information shared, is confident to continue effectively her infant at home, when to call for assistance, denies any additional assistance or education at this time. Reported to the Primary RN.
[2025-02-03] MEDS: MULTIVIT/MIN/PREN/FOL AC/IRON TABLET 1 TAB PO (09:18)
--- NOTE | 2025-02-03 10:19 | P.PNOB_ITS ---
OB - PN: Subj Subjective Date/time seen: 02/03/25 10:19 Narrative: Pain OK. Would like to go home. OB - PN: Obj Data Labs 02/02/25 03:40 02/01/25 00:27 Labs: Laboratory Results - last 24 hr 02/02/25 03:43 Blood Type B Negative Antibody Screen Negative Screen Negative Baby's Blood Type B pos Baby's CATARINA Negative Doses of RhIg Required 1 OB - PN A/P Plan day: 2 Comments: A: PPD#2, doing well. P: Home to f/u 6 weeks. Exam 2 Psych: Other: AVSS ABD soft, nontender, fundus firm EXT nontender
--- NOTE | 2025-02-03 10:21 | P.DS_ITS ---
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 OB - DS: Summary OB Procedures : NST OB Procedures Intrapartum: GBS prophylaxis OB Procedures: : None Peripartum Data Laceration Description: Vaginal (small at 7 o clock) Episiotomy description: None Time Spent with Patient Time attestation: Total time spent providing and/or coordinating discharge services: DS: Data Data Completed and Pending Labs on day of discharge: Labs from last 24 hours 02/02/25 03:43 Blood Type B Negative Antibody Screen Negative Screen Negative Baby's Blood Type B pos Baby's CATARINA Negative Doses of RhIg Required 1 Discharge Plan Discharge Attending physician on discharge: Kody Deluca Discharging Clinician: Tor Victorai Patient Disposition: Home Activity: pelvic rest Diet: regular Discharge Instructions: Call or return if temperature above 100.4? F, increased abdominal pain, increased vaginal bleeding or any new problems. Patient Language: Polish Stand Alone Forms: General Discharge Information Follow-up/Referrals: Kody Deluca MD [Physician, CAR INSPECTION AND REPAIR MANAGER] - 6 Weeks Discharge Medications: Continued DHA 200 mg capsule 200 mg PO HS ferrous sulfate 325 mg (65 mg iron) tablet 325 mg PO DAILY triamcinolone acetonide 0.1 % cream 1 applic topical BID PRN (Reason: rash) Qty: 30 0RF Date of admission: 01/31/25 20:51 Primary Care Provider: Pop Parham Admitting Provider: Kody Deluca Attending physician on admission: Kody Deluca Condition: Stable
[2025-02-05 12:45] VITALS: BP 136/88; PULSE 69; RESP 18; TEMP 37.1; O2SAT 100
== END 2025-02-03 14:09 | disposition home or self-care (01) | DRG 560 ==
LOC: ANHLDR 22:37 → ANHOB2 02-03 10:21 → ANHLDR 02-04 09:23
PROVIDERS: Obstetrics & Gynecology; Admitting Provider Student in an Organized Health Care Education/Training Program; PCP Internal Medicine; Visit Provider Obstetrics & Gynecology
DX: O99.824 Streptococcus B carrier state complicating childbirth (principal); Z37.0 Single live birth; Z3A.38 38 weeks gestation of pregnancy; O32.6XX0 Maternal care for compound presentation, not applicable or unspecified; O69.81X0 Labor and delivery complicated by cord around neck, without compression, not applicable or unspecified; O70.0 First degree perineal laceration during delivery; O69.89X0 Labor and delivery complicated by other cord complications, not applicable or unspecified
CPT/HCPCS: 36415; 80053; 81003; 82570; 84156; 84550; 85014; 85018; 85025; 85461; 86593; 86850; 86880; 86900; 86901; 86902; 90384; A9270; J0290; J2405; J2590; J2790; J2795; J7120

== ENCOUNTER 2025-02-17 14:18 | Outpatient (CLI) | payer OTHER, SELFPAY ==
[2025-02-17 14:34] LABS: Hematocrit 40.6 % (35.0-49.0); Hemoglobin 13.6 g/dL (12.0-15.0); Mean Corpuscular HGB Conc 33.5 g/dL (32-36); Mean Corpuscular Hemoglobin 29.6 pg (27.0-31.0); Mean Corpuscular Volume 88.3 fL (78.0-102.0); Platelet Count Result 245 K/mm3 (150-420); Red Blood Count 4.60 M/mm3 (4.20-5.40); White Blood Count 12.1 K/mm3 (4.8-10.8)
[2025-02-17 14:47] LABS: Alanine Aminotransferase 16 U/L (6-35); Albumin Level 4.8 g/dL (3.5-5.1); Alkaline Phosphatase 130 U/L (38-126); Anion Gap 13 mmol/L (4-12); Aspartate Amino Transferase 27 U/L (14-36); Bilirubin,Total 1.8 mg/dL (0.2-1.3); Blood Urea Nitrogen 13 mg/dL (7-17); Calcium 9.3 mg/dL (8.4-10.2); Carbon Dioxide 26 mmol/L (22-30); Chloride 102 mmol/L (98-107); Estimated Glomerular Filt Rate > 60; Glucose 101 mg/dL (65-110); Osmolality Calculated 292 mOsm/kg (285-295); Potassium 4.4 mmol/L (3.4-5.0); Sodium 141 mmol/L (137-145); Total Protein 7.8 g/dL (6.3-8.2)
[2025-02-17 14:58] LABS: Strep Group A RT-PCR NOT DETECTED (Negative)
[2025-02-17 15:11] LABS: Influenza A QL RT-PCR Negative (Negative); Influenza B QL RT-PCR Negative (Negative); RSV RNA, RT-PCR Negative (Negative); SARS-CoV-2 RNA PCR Negative (Negative)
--- OUTSIDE RECORDS SUMMARY | 2025-02-17 16:06 | XMS_ITS | Clinical Summary ---
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 NO: [id number] Referring MD: KODY AYALA MD Site: [facility] Presales Engineer: Elio Car RDMS : 2000 Age: 24 ----- INDICATION ----- Screening Follow-Up Large for dates CODING ----- Diagnoses Z3A.33: Weeks of gestation O36.63X0: Maternal care for excessive growth Z36.2: Encounter for other screening follow-up Procedures 03168: Ultrasound, uterus, real time with image documentation, [...] 5 lb 10 oz EFW by Hadlock ([id number]) Extremities / Bony Struc Biometry: FL / [...] and date of were verified by the environmental quality analyst prior to the exam IMPRESSION ----- Olivera [...] Pat. Name:Tasneem OG Date:12/29/2024 1:35pm Pat. NO: [id number] MD:KODY AYALA MD [facility]Elio Car RDMS :2000Age:24 ----- INDICATION ----- Screening Follow-Up Large for dates CODING ----- Diagnoses Z3A.33: Weeks of gestation O36.63X0: Maternal care for excessive fetalgrowth Z36.2: Encounter for other screeningfollow-up Procedures 11718: Ultrasound, uterus, real time withimage documentation, follow up, transabdominal approach per fetus MATERNAL ASSESSMENT ----- Physical Exam Weight 84 kg. BMI 31.76 kg/m METHOD ----- Transabdominal ultrasound examination ----- Olivera . Number of fetuses: 1 DATING ----- Cycle:regular cycle GA by prior [id number] w + 4 d HORACE by prior [...] 5 lb 10 oz EFW by Hadlock ([id number]) Extremities / Bony Struc Biometry: FL / [...] and date of were verified by the environmental quality analyst prior tothe exam IMPRESSION ----- Olivera @ [...] Final Result from Last 3 Months Insurance MEDICAID
[2025-02-17 16:52] LABS: Add Urine Microscopic? YES; Appearance Urine Clear (Clear); Glucose Urine UA Negative (Negative); Leukocyte Esterase Ur 1+ (Negative); Nitrate Urine Negative (Negative); Specific Grav Ur 1.015 (1.010-1.020)
== END 2025-02-17 14:19 | disposition home or self-care (01) ==
PROVIDERS: PCP Internal Medicine; Visit Provider Nurse Practitioner Family
DX: R50.9 Fever, unspecified (principal); R51.9 Headache, unspecified
CPT/HCPCS: 36415; 80053; 81001; 85027; 87086; 87637; 87651